=== PATIENT | male | born 1960 | race Caucasian/White ===

== ENCOUNTER → 2019-12-13 13:21 | Outpatient (BNVA) | payer OTHER, SELFPAY | PROVIDERS: Family Provider Internal Medicine; PCP Internal Medicine; Visit Provider Internal Medicine | DX: E78.2 Mixed hyperlipidemia (principal) | CPT/HCPCS: 80061 ==

== ENCOUNTER 2020-01-28 13:13 | Outpatient (CLI) | payer OTHER, SELFPAY ==
--- NOTE | 2020-01-28 13:30 | USCV_ITS ---
Montrell Garcia Age: 59 Gender: M : 1960 Exam Date: 01/28/2020 13:34 Ordering Phys: Matthew Mcclelland MD ([email or web address]) Technologist: Maddi Valdez Exam Location: [facility] [place] Indication: AV replaced/ hx Ross procedure BP: / HR: 57 Rhythm: Sinus Technical Quality: Good MEASUREMENTS (Male / Female) Normal Values 2D ECHO LV Diastolic Diameter PLAX 5.8 cm 4.2 - 5.9 / 3.9 - 5.3 cm LV Systolic Diameter PLAX 4.4 cm IVS Diastolic Thickness 1.5 cm 0.6 - 1.0 / 0.6 - 0.9 cm IVS Systolic Thickness 1.7 cm LVPW Diastolic Thickness 1.1 cm 0.6 - 1.0 / 0.6 - 0.9 cm LVPW Systolic Thickness 1.2 cm LVOT Diameter 2.3 cm LV Ejection Fraction 2D Teich 46.7 % LV Ejection Fraction MOD 2C 54.5 % LV Ejection Fraction 2C AL 54.1 % LA Diameter 3.4 cm LA Width 4.7 cm LA Height 5.1 cm RA Width 4.7 cm RA Height 5.5 cm Aorta at Sinotubular Diameter 4.0 cm M-MODE LV Diastolic Diameter MM 6.5 cm 4.2 - 5.9 / 3.9 - 5.3 cm LV Systolic Diameter MM 4.1 cm LV Ejection Fraction MM Teich 66.4 % IVS Diastolic Thickness MM 0.7 cm 0.6 - 1.0 / 0.6 - 0.9 cm IVS Systolic Thickness MM 1.5 cm LVPW Diastolic Thickness MM 0.8 cm 0.6 - 1.0 / 0.6 - 0.9 cm LVPW Systolic Thickness MM 1.4 cm Aortic Annulus Diameter 3.2 cm LA Ao Ratio MM 1.2 MV E Point Septal Separation 0.4 cm DOPPLER AV Peak Velocity 137.3 cm/s LVOT Peak Velocity 93.0 cm/s AV Area Cont Eq vti 3.1 cm squared AV Area Cont Eq pk 2.7 cm squared MV Peak Velocity 104.0 cm/s MV Area PHT 3.5 cm squared Mitral E to A Ratio 1.7 MV E' Velocity 54.5 cm/s Mitral E to MV E' Ratio 9.0 Mitral E to LV E' Lateral Ratio 7.5 Mitral E to LV E' Septal Ratio 11.3 TR Peak Velocity 139.7 cm/s TR Peak Gradient 7.8 mmHg Right Atrial Pressure 3.0 mmHg Pulmonary Artery Systolic Pressu 10.8 mmHg PV Peak Velocity 145.0 cm/s RV Acceleration Time 0.1 s RV Ejection Time 0.3 s RV AcT/ET 0.3 FINDINGS Left Ventricle Normal LV size with an ejection fraction of 54%. Mild hypokinesia of the basal and mid septum and anteroseptal segments. Right Ventricle Normal right ventricular size and systolic function. Right Atrium Mildly dilated Left Atrium Mildly dilated Mitral Valve No gross abnormalities were noted Aortic Valve Tissue valve at the aortic position appears to be well-seated. Valve leaflets could not be visualized well. Mild aortic regurgitation was noted Tricuspid Valve Trace tricuspid valve regurgitation. Pulmonic Valve Could not be visualized well Pericardium No pericardial effusion. Aorta Normal aortic annulus size. CONCLUSIONS Normal LV size with an ejection fraction of 54%. Mild hypokinesia of the basal and mid septum and anteroseptal segments. Tissue valve at the aortic position appears to be well-seated. Valve leaflets could not be visualized well. Mild aortic regurgitation was noted. Peak velocity at the aortic valve was 1.37 m/s. Mild biatrial enlargement. Trace tricuspid valve regurgitation. Estimated pulmonary peak systolic pressure was within normal limits There is no pericardial effusion. There are no intracardiac masses. Compared to the previous study from 12/11/2018, there may not be a significant change. Dr Matthew Mcclelland MD FAC (Electronically Signed) Final Date: 28 January 2020 19:51 S
== END 2020-01-28 13:14 | disposition home or self-care (01) ==
PROVIDERS: PCP Internal Medicine; Visit Provider Internal Medicine Cardiovascular Disease
DX: I38 Endocarditis, valve unspecified (principal); Z95.2 Presence of prosthetic heart valve; I35.1 Nonrheumatic aortic (valve) insufficiency; I07.1 Rheumatic tricuspid insufficiency
CPT/HCPCS: 93306

== ENCOUNTER 2020-04-28 01:36 | Emergency (ER) | payer OTHER, SELFPAY ==
[2020-04-28 01:41] VITALS: BP 174/69; PULSE 58; RESP 18; TEMP 36.6; O2SAT 95; BMI 33.5
--- NOTE | 2020-04-28 01:54 | CTR_ITS ---
PROCEDURE INFORMATION: Exam: CT Head Without Contrast Exam date and time: 04/28/2020 1:56 AM Age: 59 years old Clinical indication: Numbness / parasthesia; Patient HX: Sudden onset of left arm numbness this a. M. TECHNIQUE: Imaging protocol: Computed tomography of the head without contrast. Radiation optimization: All CT scans at this facility use at least one of these dose optimization techniques: automated exposure control; mA and/or kV adjustment per patient size (includes targeted exams where dose is matched to clinical indication); or iterative reconstruction. COMPARISON: No relevant prior studies available. RADIATION DOSE METRICS: Total DLP (mGy-cm): 903.21 FINDINGS: Brain: No hemorrhage. No significant white matter disease. No edema. Cerebral ventricles: No hydrocephalus Bones/joints: No acute fracture. Paranasal sinuses: Visualized sinuses are unremarkable. No fluid levels. Mastoid air cells: No significant mastoid effusion. Soft tissues: Unremarkable. CT/CT head wo con* [id number] IMPRESSION: No acute intracranial abnormality. Radiation Dose CTDIVOL = (mGy): DLP = 903.21 (mGy-cm)
--- NOTE | 2020-04-28 01:54 | XR_ITS ---
WS: [id number] Exam: XR chest 1V portable [id number] Date/Time of Exam: 04/28/2020 1:56 AM Reason For Exam: cp Comparison 04/21/2015. The lungs are clear and fully expanded. Unremarkable cardiomediastinal structures for technique. Sign s of the median sternotomy. Regional bony elements are intact. XR/XR chest 1V portable [id number] IMPRESSION: 1. No acute cardiopulmonary finding. No change.
--- NOTE | 2020-04-28 01:54 | ECG_ITS ---
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 Measurements Intervals [place] Rate: 53 P: 26 IN: 206 QRS: 20 QRSD: 100 T: 38 QT: 452 QTc: 427 Interpretive Statements SINUS BRADYCARDIA No previous ECG available for comparison Electronically Signed On 04-29-2020 11:21:48 BOOK ILLUSTRATOR by Bre Neri M.D. [id number]
--- NOTE | 2020-04-28 02:00 | W.ED.NEUROSD ---
HPI - Neuro Symptoms/Deficit General: Chief Complaint: General Medical Stated Complaint: left arm numbness Time Seen by Provider: 04/28/20 01:38 Source: patient Mode of arrival: ambulatory Limitations: no limitations History of Present Illness: HPI Narrative: 59-year-old male states he went to bed last night at 10:00. He states he woke up at 1230 and had pain in his left elbow with numbness in his first 2 fingers and thumb. He states that the numbness is since improved but he still has some slight numbness in his fingers. He states he has had this happen before but he has not had it last this long. He denies any chest pain or headache. He states he got some slight pain still in his elbow and forearm as well. He denies any weakness. Associated symptoms: Deny chest pain, headache(s), nausea or vomiting Review of Systems Const: Denies: fever(s), chills, body aches or change in appetite Eyes: Denies: blurry vision or eye discomfort ENMT: Denies: throat pain or dental pain Card: Denies: chest pain Resp: Denies: dyspnea GI: Denies: abdominal pain, nausea, vomiting or diarrhea : Denies: dysuria Musc: Denies: neck pain or back pain Skin/Breast: Denies: rash Neuro: Reports: numbness in extremities; Denies: headache(s) Psych: Denies: depression Dante/Lymph: Denies: easy bruising All/Imm: Denies: urticaria PFSH ED PFSH: Medical History (Updated 04/28/20 @ 03:25 by Toy Travis MD) Abdominal aortic aneurysm ASHD (arteriosclerotic heart disease) BPH (benign prostatic hyperplasia) Hyperlipidemia Hypertension DIONICIO (obstructive sleep apnea) Valvular heart disease Surgical History H/O aortic valve replacement History of back surgery Family History Other CAD (coronary artery disease) CHF (congestive heart failure) Hypertension Social History Smoking and tobacco status: never smoked Alcohol intake: current Alcohol intake frequency: holidays/special occasions only Household members: spouse NIH stroke score NIHSS: Level Of Consciousness - 1a: 0 Level Of Consciousness Questions - 1b: Both Correct Level Of Consciousness Commands - 1c: Both Correct Best Gaze - 2: Normal Visual Márquez - 3: No Visual Loss Facial Palsy - 4: Normal Motor Arm Right - 5: No Drift Motor Arm Left - 5: No Drift Motor Leg Right - 6: No Drift Motor Leg Left - 6: No Drift Limb Ataxia - 7: Absent Sensory - 8: Normal Best Language - 9: No Aphasia Dysarthia - 10: Normal Extinction And Inattention - 11: 0 Score: Total Score: 0 Physical Exam Const: COMMON NORMALS: no acute distress, patient oriented x3 and healthy appearing HENMT: COMMON NORMALS: normocephalic and atraumatic HEAD & SCALP: normocephalic and atraumatic Eye: COMMON NORMALS: Equal, round and reactive pupils present and EOMs intact bilaterally PUPIL: Yes Equal, round and reactive pupils present Neck/C-Spine: COMMON NORMALS: full ROM and supple Chest: COMMONS NORMALS: normal inspection of the chest and normal palpation of entire chest wall Resp: COMMON NORMALS: normal respiratory effort, No retractions, No use of accessory muscles and clear to auscultation bilaterally AUSCULTATION: clear to auscultation bilaterally Cardio: COMMON NORMALS: regular rate, regular rhythm and No murmurs present (Cardio) RATE: regular rate RHYTHM: regular rhythm GI: COMMON NORMALS: Normal to inspection, nondistended, normoactive bowel sounds present, Soft to palpation, non-tender and no masses PALPATION: Yes Soft to palpation Extremity: COMMON NORMALS: normal to inspection and full ROM Neuro: COMMON NORMALS: patient oriented x3, moves all extremities and no focal motor deficits CRANIAL NERVES: Yes CN normal except as noted COORDINATION/BALANCE: kinqol-kf-[id number] test normal SPEECH: speech normal GAIT: Yes Normal gait present MOTOR EXAM: 5/5 motor strength present throughout COORDINATION: inugkm-ln-fdov test normal Psych: COMMON NORMALS: mental status grossly normal, Normal thought process present and cooperative THOUGHT PROCESS: Normal thought process present Skin: COMMON NORMALS: no rashes or lesions noted and no wounds GENERAL SKIN EXAM: no rashes or lesions noted Course Vital Signs: Vital signs: Vital Signs Temperature 97.9 F 04/28/20 01:41 Pulse Rate 52 L 04/28/20 03:45 Respiratory Rate 18 04/28/20 03:45 Blood Pressure 144/65 04/28/20 03:45 Pulse Oximetry 96 04/28/20 03:45 MDM - Neuro Symptoms/Deficit MDM Narrative: Medical decision making narrative: Montrell presents here with pain in his elbow along with numbness in his hand. I believe he likely has a tendinitis is causing his pain and the numbness. Patient's EKG and troponin here are normal and he has no signs of cardiac cause. CT is normal and he has no signs of a stroke. Patient is stable for discharge and is to follow-up his PCP and return if worsening. Lab Data: Labs: Lab Results 04/28/20 04/28/20 04/28/20 Range/Units 02:19 02:19 02:19 WBC 5.1 (4.0-10.0) 10^3/ uL RBC 4.56 (4.1-5.3) 10^6/u L Hgb 13.9 (11.7-16.6) g/dL Hct 42.0 (42.0-52.0) % MCV 92.1 (80-94) fL MCH 30.5 (28.0-34.0) pg MCHC 33.1 (30.0-36.0) g/dL RDW 13.6 (12.1-15.1) % Plt Count 148 (130-400) 10^3/c mm MPV 11.0 H (7.4-10.4) fL Neut % (Auto) 59.4 % Lymph % (Auto) 25.3 % Sampson % (Auto) 10.1 % Eos % (Auto) 4.0 % Baso % (Auto) 1.0 % Neut # (Auto) 3.01 (1.8-7.7) 10^3/u L Lymph # (Auto) 1.3 (0.8-4.8) 10^3/u L Sampson # (Auto) 0.5 (0.2-0.9) 10^3/u L Eos # (Auto) 0.2 (0.0-0.8) 10^3/u L Baso # (Auto) 0.1 (0.0-0.1) 10^3/u L Nucleated RBC % (a uto) 0 % Nucleated RBCs # 0.0 /100WBC Sodium Cancelled Potassium Cancelled Chloride Cancelled Carbon Dioxide Cancelled Anion Gap Cancelled BUN Cancelled Creatinine Cancelled GFR Calculation Cancelled Glucose Cancelled Calculated Osmolal ity Cancelled Calcium Cancelled Total Bilirubin Cancelled AST Cancelled ALT Cancelled Alkaline Phosphata se Cancelled Troponin T Baselin e Cancelled Total Protein Cancelled Albumin Cancelled Globulin Cancelled 04/28/20 04/28/20 Range/Units 02:50 02:50 WBC (4.0-10.0) 10^3/ uL RBC (4.1-5.3) 10^6/u L Hgb (11.7-16.6) g/dL Hct (42.0-52.0) % MCV (80-94) fL MCH (28.0-34.0) pg MCHC (30.0-36.0) g/dL RDW (12.1-15.1) % Plt Count (130-400) 10^3/c mm MPV (7.4-10.4) fL Neut % (Auto) % Lymph % (Auto) % Sampson % (Auto) % Eos % (Auto) % Baso % (Auto) % Neut # (Auto) (1.8-7.7) 10^3/u L Lymph # (Auto) (0.8-4.8) 10^3/u L Sampson # (Auto) (0.2-0.9) 10^3/u L Eos # (Auto) (0.0-0.8) 10^3/u L Baso # (Auto) (0.0-0.1) 10^3/u L Nucleated RBC % (a uto) % Nucleated RBCs # /100WBC Sodium 141 Potassium 3.7 Chloride 104 Carbon Dioxide 29 Anion Gap 11.7 BUN 17 Creatinine 1.0 GFR Calculation 76.2 L Glucose 112 Calculated Osmolal ity 294 Calcium 9.1 Total Bilirubin 0.4 AST 20 ALT 10 Alkaline Phosphata se 54 Troponin T Baselin e 10 Total Protein 5.7 L Albumin 4.1 Globulin 1.6 Imaging Data^: CXR: Attestation: I personally reviewed and interpreted this imaging study as follows: My impression: no acute abnormality EKG Data^: EKG 1: Attestation: I personally reviewed and interpreted this EKG as follows: EKG interpretation date: 04/28/20 EKG interpretation time: 02:25 Interpretation: sinus fabian hr [address] or t wave abnormalities qrs 100 qtc 436 Discharge Plan Discharge Patient Disposition: Home Clinical Impression: Paresthesia, Elbow pain, left Condition: Stable Prescriptions: New Naprosyn 500 mg tablet 500 mg PO BID PRN (Reason: pain) Qty: 20 RF: 0 No Action fluticasone propionate [Flonase Allergy Relief] 50 mcg/actuation spray,suspension 2 spray INTRANASAL DAILY RF: 0 aspirin [Adult Aspirin Regimen] 81 mg tablet,delayed release (DR/EC) 162 mg PO DAILY RF: 0 omega-3 acid ethyl esters [Lovaza] 1 gram capsule 1 cap PO DAILY Qty: 90 RF: 3 sildenafil (pulm.hypertension) 20 mg tablet 20 mg PO .COMPLEX Qty: 30 RF: 3 testosterone cypionate [Depo-Testosterone] 200 mg/mL oil 200 mg IM .d2cbjeg 30 Days Qty: 10 RF: 3 lorazepam 0.5 mg tablet 0.5 mg PO BID PRN (Reason: anxiety) Qty: 60 RF: 0 lisinopril 20 mg tablet 20 mg PO DAILY 90 Days Qty: 90 RF: 0 rosuvastatin 20 mg tablet 20 mg PO DAILY Qty: 90 RF: 3 Discharge Orders: Discharge ED (Routine); Ordered 04/28/20 Ordered By: Toy Travis Referrals: Balbir Lewis MD [Primary Care Provider] - 1-3 days Discharge Diet: Advance as tolerated Discharge Activity: Resume usual activity Patient Instructions: Paresthesia (ED), Tendinitis (ED) Coding Level of Care Code ED Senior Production Manager for Irinag Fwd Exam Comprehensive
[2020-04-28 02:21] VITALS: BP 139/56; PULSE 55; RESP 16; O2SAT 95
[2020-04-28 02:26] LABS: Basophils # 0.1 10^3/uL (0.0-0.1); Eosinophils # 0.2 10^3/uL (0.0-0.8); Hemoglobin 13.9 g/dL (11.7-16.6); Lymphocytes # 1.3 10^3/uL (0.8-4.8); Lymphocytes % 25.3 %; Mean Corpuscular HGB Conc 33.1 g/dL (30.0-36.0); Mean Corpuscular Hemoglobin 30.5 pg (28.0-34.0); Mean Corpuscular Volume 92.1 fL (80-94); Monocytes # 0.5 10^3/uL (0.2-0.9); Monocytes % 10.1 %; Neutrophils # 3.01 10^3/uL (1.8-7.7); Neutrophils % 59.4 %; Nucleated Red Blood Cells % 0 %; Platelet Count 148 10^3/cmm (130-400); Red Blood Count 4.56 10^6/uL (4.1-5.3); Red Cell Distribution Width 13.6 % (12.1-15.1); White Blood Count 5.1 10^3/uL (4.0-10.0)
[2020-04-28 03:22] LABS: Alanine Aminotransferase 10 U/L (0-41); Albumin Level 4.1 g/dL (3.5-5.2); Alkaline Phosphatase 54 IU/L (40-130); Anion Gap 11.7 (5-19); Aspartate Amino Transferase 20 U/L (0-40); Blood Urea Nitrogen 17 mg/dL (8-23); Calcium 9.1 mg/dL (8.5-10.5); Carbon Dioxide 29 mmol/L (22-29); Chloride 104 mmol/L (98-107); Globulin 1.6 g/dL (1.3-4.6); Glomerular Filtration Rate 76.2 mL/min (90-130); Glucose 112 mg/dL (65-115); Osmolality Calculated 294 mOsm/kg (285-295); Potassium 3.7 mmol/L (3.5-5.1); Sodium 141 mmol/L (136-145); Total Bilirubin 0.4 mg/dL (0.15-1.2); Total Protein 5.7 g/dL (6.6-8.7)
[2020-04-28 03:23] LABS: Troponin(5th) Baseline 10 ng/L (0-15)
[2020-04-28 03:45] VITALS: BP 144/65; PULSE 52; RESP 18; O2SAT 96
== END 2020-04-28 03:47 | disposition home or self-care (01) ==
PROVIDERS: Emergency Provider Emergency Medicine; PCP Internal Medicine
DX: R20.2 Paresthesia of skin (principal); M25.522 Pain in left elbow; Z79.82 Long term (current) use of aspirin; E78.5 Hyperlipidemia, unspecified; I10 Essential (primary) hypertension
CPT/HCPCS: 70450; 71045; 80053; 84484; 85025; 93005; 99283

== ENCOUNTER → 2020-09-18 13:32 | Outpatient (BNVA) | payer OTHER, SELFPAY | PROVIDERS: PCP Internal Medicine; Visit Provider Internal Medicine | DX: Z01.812 Encounter for preprocedural laboratory examination (principal); Z20.822 Contact with and (suspected) exposure to COVID-19 | CPT/HCPCS: 87635 ==

== ENCOUNTER 2020-09-22 07:54 | Day surgery (SDC) | payer OTHER, SELFPAY ==
[2020-09-20 11:48] VITALS: BMI 33.5
[2020-09-22 08:03] VITALS: BP 162/69; PULSE 67; RESP 18; TEMP 36.3; O2SAT 96
[2020-09-22] MEDS: sodium chloride 0.9% 1,000 ML 30 ML IV (08:15)
--- NOTE | 2020-09-22 08:40 | ANES.PREANE2 ---
Pre-Anesthetic Assessment Pre-Anesthetic Assessment: Height/Weight: Height 1.8 m Weight 108.862 kg Temp Pulse Resp BP Pulse Ox 97.3 F L 67 18 162/69 96 09/22/20 08:03 09/22/20 08:03 09/22/20 08:03 09/22/20 08:03 09/22/20 08:03 Preop Diagnosis: screen Proposed Procedure: Operation Date: 09/22/20 09:00 Proposed Procedures p Colonoscopy 38689 z12.11(Not Applicable) - Balbir Lewis MD Familial anesthetic complications: PONV w/ general anesthetics Was Beta Zuri taken within 24 hours: N/A Was Clonidine taken within 24 hours: N/A Last intake: Intake Last Liquid Date 09/21/20 Last Liquid Time 23:00 Last Solid Date 09/20/20 Last Solid Time 19:00 Social: Social History: No alcohol and No tobacco Exam: Pre-Anes Outpt Exam: alert, oriented x 3, clear to auscultation bilaterally and regular rate & rhythm Additional Exam Findings (including area of procedure): murmur - normal for patient Airway: Cervical ROM: WNL MP: 4 Dentition: Other (veneers) Pulmonary: Pulmonary: Sleep apnea CV/HEM: CV/HEM: CAD and HTN Comments: Aortic valve replacement X 2 w/ aortic root replacement; doing well since surgery AAA ECHO 12/2018 Normal left ventricular size and systolic function, EF 67 %. Abnormal (paradoxical) septal motion consistent with postoperative status. The tissue valve with aortic position appears to be well-seated. Trace to mild aortic valve regurgitation. Peak velocity aortic valve is 1.7 m/s with a peak gradient of 12 mean gradient of 5 mmHg Mild left ventricular hypertrophy. Trace tricuspid valve regurgitation. Normal pulmonary artery peak systolic pressure of 28 mmHg There is no pericardial effusion. There are no intracardiac masses. Compared to the study from 05/30/2017, there may not be a significant change Anesthetic Plan: ASA status: 3 Anesthesia: MAC Risk of > 500 ml blood loss (7ml/kg in children): No Meds/Allergies Current Medications: Current Medications Generic Name Dose Route Start Last Admin Trade Name Freq PRN Reason Stop Dose Admin Sodium Chloride 1,000 mls @ 30 ml s/hr 09/22/20 08:00 09/22/20 08:15 Sodium Chloride 0.9% IV 09/23/20 07:59 30 mls/hr .Q24H VISH Administration PFSH Anesthesia PFSH: Medical History (Updated 05/06/20 @ 00:00 by ) Abdominal aortic aneurysm ASHD (arteriosclerotic heart disease) BPH (benign prostatic hyperplasia) Hyperlipidemia Hypertension DIONICIO (obstructive sleep apnea) Valvular heart disease Surgical History H/O aortic valve replacement History of back surgery Family History Other CAD (coronary artery disease) CHF (congestive heart failure) Hypertension Social History Smoking and tobacco status: never smoked Alcohol intake: current Alcohol intake frequency: holidays/special occasions only Household members: spouse Data Anesthesia Cardiac Studies: No Data to Display
--- NOTE | 2020-09-22 09:10 | W.PM.OPSFHP ---
Same Day Surgery H&P Indication for Procedure/HPI DATE OF PROCEDURE: September 22, 2020 CHIEF COMPLAINT/INDICATIONFOR SURGICAL PROCEDURE: Screening PREOP DIAGNOSIS: screen PLANNED PROCEDRUE: Operation Date: 09/22/20 09:00 Proposed Procedures p Colonoscopy 74535 z12.11(Not Applicable) - Balbir Lewis MD Medications/Allergies* Home Medications Medication Instructions Recorded Confirmed Type aspirin 81 mg tablet,delayed 162 mg PO DAILY tab 11/18/19 09/20/20 History release fluticasone propionate 50 2 spray INTRANASAL DAILY 11/18/19 09/20/20 History mcg/actuation nasal spray,suspension Allergies/Adverse Reactions Allergy/AdvReac Type Severity Reaction Status Date / Time cephalexin [From Keflex] Allergy Unknown Verified 12/13/19 13:30 Current Medications: Generic Name Dose Route Start Last Admin Trade Name Freq PRN Reason Stop Dose Admin Sodium Chloride 1,000 mls @ 30 mls/hr 09/22/20 08:00 09/22/20 08:15 Sodium Chloride 0.9% IV 09/23/20 07:59 30 mls/hr .Q24H VISH Administration Pertinent History/Comorbid Conditions* Medical History (Updated 05/06/20 @ 00:00 by ) Abdominal aortic aneurysm ASHD (arteriosclerotic heart disease) BPH (benign prostatic hyperplasia) Hyperlipidemia Hypertension DIONICIO (obstructive sleep apnea) Valvular heart disease Surgical History (Updated 11/18/19 @ 14:12 by Matthew Mcclelland MD) H/O aortic valve replacement History of back surgery Family History (Updated 11/18/19 @ 13:50 by Michelle Pantoja RN) CAD (coronary artery disease) CHF (congestive heart failure) Hypertension Social History Smoking and tobacco status: never smoked Alcohol intake: current Alcohol intake frequency: holidays/special occasions only Household members: spouse Pertinent Exam Findings alert, oriented x 3, clear to auscultation bilaterally, regular rate & rhythm, operative site marked and procedure specific exam findings Recommendations Surgery/Procedure today Coding Level of Care Code Acute Reel 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
[2020-09-22 10:35] VITALS: BP 116/55; PULSE 56; RESP 18; O2SAT 97
--- NOTE | 2020-09-22 14:20 | ANE.PACU2 ---
Inpatient post-anesthesia follow up: Airway intact: Yes Vital signs: Temperature 97.3 F Pulse Rate 56 Respiratory Rate 18 Blood Pressure 116/55 Pulse Oximetry 97 Oxygen Delivery Me thod Room Air Oxygen Flow Rate Fraction of Inspir ed Oxygen Hydration adequate: Yes Nausea and vomiting: No Pain level: 2 Mental status: Baseline
== END 2020-09-22 10:45 | disposition home or self-care (01) ==
PROVIDERS: PCP Internal Medicine; Visit Provider Internal Medicine
PROC: 0DJD8ZZ Inspection of Lower Intestinal Tract, Via Natural or Artificial Opening Endoscopic (ICD-10-PCS; CPT 45378; principal; 2020-09-22 09:00)
DX: Z12.11 Encounter for screening for malignant neoplasm of colon (principal); K57.30 Diverticulosis of large intestine without perforation or abscess without bleeding; D12.3 Benign neoplasm of transverse colon; N40.0 Benign prostatic hyperplasia without lower urinary tract symptoms; E78.5 Hyperlipidemia, unspecified; I10 Essential (primary) hypertension; G47.33 Obstructive sleep apnea (adult) (pediatric); Z82.49 Family history of ischemic heart disease and other diseases of the circulatory system
CPT/HCPCS: 45385; 96360; 96361; J2704; J7030

== ENCOUNTER → 2020-12-11 09:24 | Outpatient (BNVA) | payer OTHER, SELFPAY | PROVIDERS: PCP Internal Medicine; Visit Provider Nurse Practitioner Family | DX: I38 Endocarditis, valve unspecified (principal); E78.2 Mixed hyperlipidemia; I10 Essential (primary) hypertension; I25.10 Atherosclerotic heart disease of native coronary artery without angina pectoris; Z12.5 Encounter for screening for malignant neoplasm of prostate | CPT/HCPCS: 80053; 80061; 83036; 84153 ==

== ENCOUNTER 2021-07-20 13:41 | Emergency (ER) | payer OTHER, SELFPAY ==
[2021-07-20 13:52] VITALS: BP 140/56; PULSE 64; RESP 16; TEMP 36.6; O2SAT 96; BMI 34.8
--- NOTE | 2021-07-20 14:05 | XRR_ITS ---
PROCEDURE INFORMATION: Exam: XR Chest Exam date and time: 07/20/2021 2:14 PM Age: 61 years old Clinical indication: Pain; Angina pectoris; Prior surgery; Additional info: Cp TECHNIQUE: Imaging protocol: XR of the chest. Views: 1 view. COMPARISON: CR XR chest 1V portable [id number] 04/28/2020 1:59 AM FINDINGS: Lungs: Unremarkable. No consolidation. Pleural spaces: Unremarkable. No pleural effusion. No pneumothorax. Heart/Mediastinum: Cardiomegaly is identified. Bones/joints: There has been a sternotomy. XR/XR chest 1V portable [id number] IMPRESSION: There are no acute concerning abnormalities.
[2021-07-20 14:34] LABS: Basophils % 0.6 %; Eosinophils # 0.2 10^3/uL (0.0-0.8); Eosinophils % 2.4 %; Hemoglobin 13.7 g/dL (11.7-16.6); Lymphocytes # 1.2 10^3/uL (0.8-4.8); Lymphocytes % 18.5 %; Mean Corpuscular HGB Conc 35.1 g/dL (30.0-36.0); Mean Corpuscular Hemoglobin 30.6 pg (28.0-34.0); Mean Corpuscular Volume 87.1 fl (80-94); Mean Platelet Volume 10.7 fL (7.4-10.4); Monocytes # 0.5 10^3/uL (0.2-0.9); Monocytes % 8.3 %; Neutrophils # 4.38 10^3/uL (1.8-7.7); Neutrophils % 69.7 %; Nucleated Red Blood Cells % 0 %; Platelet Count 130 10^3/cmm (130-400); Red Blood Count 4.48 10^6/uL (4.1-5.3); Red Cell Distribution Width 12.6 % (12.1-15.1); White Blood Count 6.3 10^3/uL (4.0-10.0)
[2021-07-20 14:53] LABS: Troponin T (5th) Once 15 ng/L (0-15)
[2021-07-20 15:02] LABS: Alanine Aminotransferase 13 U/L (0-41); Albumin Level 4.5 g/dL (3.5-5.2); Alkaline Phosphatase 36 IU/L (40-130); Aspartate Amino Transferase 19 U/L (0-40); Blood Urea Nitrogen 16 mg/dL (8-23); Calcium 8.5 mg/dL (8.5-10.5); Carbon Dioxide 27 mmol/L (22-29); Chloride 103 mmol/L (98-107); Globulin 1.1 g/dL (1.3-4.6); Glomerular Filtration Rate 75.7 mL/min (90-130); Glucose 99 mg/dL (65-115); Magnesium 1.7 mg/dL (1.7-2.3); Osmolality Calculated 289 mOsm/kg (285-295); Sodium 139 mmol/L (136-145); Thyroid Stimulating Hormone 3.49 uIU/mL (0.27-4.20); Total Bilirubin 0.7 mg/dL (0.15-1.2); Total Protein 5.6 g/dL (6.6-8.7)
[2021-07-20 15:03] LABS: Anion Gap 13.1 (5-19); Potassium 4.1 mmol/L (3.5-5.1)
--- NOTE | 2021-07-20 16:31 | ECG_ITS ---
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 Measurements Intervals [place] Rate: 56 P: 18 VA: 195 QRS: 13 QRSD: 96 T: 24 QT: 417 QTc: 403 Interpretive Statements SINUS BRADYCARDIA WITH SINUS ARRHYTHMIA NONSPECIFIC ST & T-WAVE ABNORMALITY Compared to ECG 04/28/2020 02:25:01 T-wave abnormality now present Electronically Signed On 07-21-2021 10:21:12 CDT by Bre Neri M.D. [id number]
[2021-07-20 16:35] VITALS: BP 144/52; PULSE 61; RESP 14; O2SAT 96
--- NOTE | 2021-07-20 16:44 | ED_ITS ---
Documented by User: Huma Patel 07/20/21 16:47 HPI - Arrhythmia/Palpitations General: Chief Complaint: Arrhythmia/Palpitations Stated Complaint: heart issues Time Seen by Provider: 07/20/21 14:00 History of Present Illness: 61-year-old male patient presents to the emergency department complaining of palpitations in his chest that started this a.m. when he woke up. Patient denies any chest pain or shortness of breath. Patient denies any back pain. Patient states he does have history of A. fib but has not had issues in years patient is not on any blood thinners. Patient denies any abdominal pain or fever. Patient denies any recent start of new medications. Patient states he has started exercising again other than that there have been no new changes with him. Associated symptoms: Deny anxiety, diaphoresis, nausea, pre-syncope, syncope or vomiting Review of Systems Const: Denies: fever(s), chills, body aches, change in appetite, change in weight, fatigue, malaise or diaphoresis Eyes: Denies: change in vision, blurry vision, blind spots, photophobia, eye discomfort, eye discharge, eye redness, floaters or seeing flashes ENMT: Denies: throat pain, uvular edema, enlarged tonsils, odynophagia, hoarseness, mouth pain, swelling of lips/tongue, oral sores, bleeding gums, dental pain, dry mouth, ear or mastoid pain, ear discharge, change in hearing, tinnitus, disequilibrium, nasal discharge, nasal congestion, post nasal drip or sinus pain Card: Denies: chest pain, irregular heart rhythm, edema, swelling of feet/ankles, lightheadedness, syncope, pre-syncope, dyspnea on exertion, orthopnea, leg pain with exertion or acrocyanosis Resp: Denies: dyspnea, productive cough, non-productive cough, wheezing, st ridor, pain on inspiration, change in phlegm color, hemoptysis or chest congestion GI: Denies: abdominal pain, nausea, vomiting, hematemesis, dysphagia, diarrhea, constipation, GI cramping, change in bowel habits or rectal pain : Denies: flank pain, dysuria, urinary frequency, urinary urgency, urinary hesitancy or hematuria Musc: Denies: neck pain, back pain, extremity pain, extremity swelling, joint pain, joint swelling, joint redness, joint warmth or deformity Skin/Breast: Denies: rash, pruritus, erythema, sores, new lesions, changes in skin color or dry skin Neuro: Denies: headache(s), numbness in extremities, weakness in extremities, sensory changes, lack of coordination, difficulty walking, frequent falls, dizziness, vertigo, confusion, behavioral changes, Slurred speech present, difficulty communicating thoughts or seizure-like activity Psych: Denies: anxiety, depression, suicidal ideation or homicidal ideation Endo: Denies: polyuria, polydipsia, tired all the time, cold intolerance, excessive sweating, flushing, hot flashes or heat intolerance Dante/Lymph: Denies: easy bruising, easy bleeding, petechiae, purpura, enlarged lymph nodes or tender lymph nodes All/Imm: Denies: urticaria, throat swelling, tongue swelling, facial swelling, acute wheezing or itchy eyes PFSH ED PFSH: Medical History Abdominal aortic aneurysm ASHD (arteriosclerotic heart disease) BPH (benign prostatic hyperplasia) Hyperlipidemia Hypertension DIONICIO (obstructive sleep apnea) Valvular heart disease Surgical History H/O aortic valve replacement History of back surgery Family History Other CAD (coronary artery disease) CHF (congestive heart failure) Hypertension Social History Smoking and tobacco status: never smoked Alcohol intake: current Alcohol intake frequency: holidays/special occasions only Household members: spouse Physical Exam Const: COMMON NORMALS: no acute distress, patient oriented x3, healthy appearing, alert and well nourished GENERAL APPEARANCE: cooperative, comfortable, well kempt and well developed; not ill appearing ORIENTATION/CONSCIOUSNESS: Yes awake, Yes oriented to person, Yes oriented to place and Yes oriented to time HENMT: COMMON NORMALS: normocephalic, atraumatic, hearing grossly normal bilaterally, external ears normal, EAC's normal, TM's normal bilaterally, Normal external nose present, Normal nasal mucous membranes and turbinates present and moist oral mucous membranes HEAD & SCALP: normal to inspection, normocephalic and atraumatic FACE & SINUS: normal facial exam, sinuses nontender and face symmetric NOSE: Normal external nose present, Normal nares present, Normal nasal mucous membranes and turbinates present, No nasal discharge present and Abnormal external nose present EXTERNAL EAR: Yes external ears normal and Yes mastoids normal EXTERNAL AUDITORY CANAL: EAC's normal TYMPANIC MEMBRANE: TM's normal bilaterally MOUTH: Normal oral and palatal mucosa present, lip normal, tongue normal and Normal salivary glands and ducts present THROAT: no uvular edema Eye: COMMON NORMALS: Equal, round and reactive pupils present, EOMs intact bilaterally, conjunctivae normal, no scleral icterus and no papilledema GENERAL EYE: appearance normal, both eyes and all related structures EYELID: eyelids normal CONJUNCTIVA: Yes conjunctivae normal SCLERA: sclerae normal CORNEA: Yes corneas normal PUPIL: Yes Equal, round and reactive pupils present DIRECT OPHTHALMOSCOPY: Yes no papilledema Neck/C-Spine: COMMON NORMALS: full ROM, no lymphadenopathy, supple, no meningeal signs, no JVD and Thyroid normal GENERAL: Yes normal visual inspection and Yes trachea midline THYROID: Thyroid normal CERVICAL SPINE: Yes cervical ROM normal Lymph: LYMPHATIC: no lymphadenopathy noted and no lymphedema noted Chest: COMMONS NORMALS: normal inspection of the chest and normal palpation of entire chest wall Resp: COMMON NORMALS: normal respiratory effort, No retractions, No use of a ccessory muscles and clear to auscultation bilaterally EFFORT & INSPECTION: Yes able to speak in complete sentences and Yes symmetric chest movement AUSCULTATION: clear to auscultation bilaterally Cardio: COMMON NORMALS: no JVD, regular rate and regular rhythm RATE: regular rate RHYTHM: regular rhythm GI: COMMON NORMALS: Normal to inspection, nondistended, normoactive bowel sounds present, Soft to palpation, non-tender, No hepatosplenomegaly present, no masses and no bruits INSPECTION: Yes normal to inspection AUSCULTATION: Yes normoactive bowel sounds PALPATION: Yes Soft to palpation and Yes No hepatosplenomegaly present PERCUSSION: normal to percussion RECTAL EXAM: Yes deferred : COMMON NORMALS: Yes no CVA tenderness BLADDER/KIDNEY EXAM: Yes no CVA tenderness Back/Pelvis: COMMON NORMALS: no CVA tenderness, thoracic and lumbar spine normal to inspection, no thoracic nor lumbar tenderness, thoraco-lumbar ROM normal and straight leg raise negative bilaterally THORACIC SPINE/UPPER BACK: Yes normal to inspection LUMBAR SPINE/LOWER BACK: Yes normal to inspection Extremity: COMMON NORMALS: normal to inspection, full ROM and capillary refill normal GENERAL: Yes normal exam except as noted Neuro: COMMON NORMALS: patient oriented x3, CN's II-XII intact bilaterally, moves all extremities, no focal motor deficits, no sensory deficits noted, deep tendon reflexes 2+ bilaterally and gait normal SENSORIUM/ORIENTATION: Yes alert, Yes oriented to person, Yes oriented to place and Yes oriented to time MENINGEAL SIGNS: Yes no meningeal signs CRANIAL NERVES: Yes CN normal except as noted SPEECH: speech normal GAIT: Yes Normal gait present SENSORY EXAM: Yes extremities MOTOR EXAM: 5/5 motor strength present throughout Psych: COMMON NORMALS: mental status grossly normal, Normal thought process present, cooperative, normal affect, speech normal, activity/motor behavior normal, denies hallucinations, denies homicidal ideation and denies suicidal ideation APPEARANCE: Yes grossly normal and Yes well kempt ATTITUDE: Yes calm ACTIVITY/MOTOR BEHAVIOR: Yes appropriate eye contact SPEECH: Yes normal speech THOUGHT PROCESS: Normal thought process present THOUGHT CONTENT: Yes Normal thought content present ATTENTION/CONCENTRATION: Yes attention grossly intact MEMORY/COGNITION: Yes memory grossly intact INSIGHT: Good insight present (Psych) JUDGEMENT: Good judgement present (Psych) Skin: COMMON NORMALS: no rashes or lesions noted, no wounds, turgor normal, no jaundice, no petechiae and no mottling GENERAL SKIN EXAM: no rashes or lesions noted and turgor normal Course Vital Signs: Vital signs: Vital Signs Temperature 97.8 F 07/20/21 13:52 Pulse Rate 60 07/20/21 17:35 Respiratory Rate 14 07/20/21 17:35 Blood Pressure 131/75 07/20/21 17:35 Pulse Oximetry 97 07/20/21 17:35 MDM - Arrhythmia/Palpitations Medical Decision Making Patient is well-appearing nontoxic and in no acute distress. Patient's labs reveal no concerning findings at this time. I am waiting delta troponin at this time. Patient is noted to be in normal sinus rhythm on the monitor has complained of palpitations patient has no other symptoms when he has these episodes of palpitations and review of the patient day coordinator it does appear patient had a PVC on occasion will wait for repeat delta troponin likely plan will be to discharge patient with follow-up to cardiology for a Holter monitor. Lab Data : 07/20/21 14:24 07/20/21 14:24 Radiology Impressions Chest X-Ray 07/20/21 14:05 IMPRESSION: There are no acute concerning abnormalities. Laboratory Results WBC 6.3 10^3/uL (4.0-10.0) 07/20/21 14:24 RBC 4.48 10^6/uL (4.1-5.3) 07/20/21 14:24 Hgb 13.7 g/dL (11.7-16.6) 07/20/21 14:24 Hct 39.0 % (42.0-52.0) L 07/20/21 14:24 MCV 87.1 fl (80-94) 07/20/21 14:24 MCH 30.6 pg (28.0-34.0) 07/20/21 14:24 MCHC 35.1 g/dL (30.0-36.0) 07/20/21 14:24 RDW 12.6 % (12.1-15.1) 07/20/21 14:24 Plt Count 130 10^3/cmm (130-400) 07/20/21 14:24 MPV 10.7 fL (7.4-10.4) H 07/20/21 14:24 Neut % (Auto) 69.7 % 07/20/21 14:24 Lymph % (Auto) 18.5 % 07/20/21 14:24 [place] % (Auto) 8.3 % 07/20/21 14:24 Eos % (Auto) 2.4 % 07/20/21 14:24 Baso % (Auto) 0.6 % 07/20/21 14:24 Neut # (Auto) 4.38 10^3/uL (1.8-7.7) 07/20/21 14:24 Lymph # (Auto) 1.2 10^3/uL (0.8-4.8) 07/20/21 14:24 [place] # (Auto) 0.5 10^3/uL (0.2-0.9) 07/20/21 14:24 Eos # (Auto) 0.2 10^3/uL (0.0-0.8) 07/20/21 14:24 Baso # (Auto) 0.0 10^3/uL (0.0-0.1) 07/20/21 14:24 Nucleated RBC % (auto) 0 % 07/20/21 14:24 Nucleated RBCs # 0.0 /100WBC 07/20/21 14:24 Sodium 139 mmol/L (136-145) 07/20/21 14:24 Potassium 4.1 mmol/L (3.5-5.1) 07/20/21 14:24 Chloride 103 mmol/L (98-107) 07/20/21 14:24 Carbon Dioxide 27 mmol/L (22-29) 07/20/21 14:24 Anion Gap 13.1 (5-19) 07/20/21 14:24 BUN 16 mg/dL (8-23) 07/20/21 14:24 Creatinine 1.0 mg/dL (0.7-1.2) 07/20/21 14:24 GFR Calculation 75.7 mL/min (90-130) L 07/20/21 14:24 Glucose 99 mg/dL (65-115) 07/20/21 14:24 Calculated Osmolality 289 mOsm/kg (285-295) 07/20/21 14:24 Calcium 8.5 mg/dL (8.5-10.5) 07/20/21 14:24 Magnesium 1.7 mg/dL (1.7-2.3) 07/20/21 14:24 Total Bilirubin 0.7 mg/dL (0.15-1.2) 07/20/21 14:24 AST 19 U/L (0-40) 07/20/21 14:24 ALT 13 U/L (0-41) 07/20/21 14:24 Alkaline Phosphatase 36 IU/L (40-130) L 07/20/21 14:24 Troponin T Gen 5 ng/L 15 ng/L (0-15) 07/20/21 16:29 Total Protein 5.6 g/dL (6.6-8.7) L 07/20/21 14:24 Albumin 4.5 g/dL (3.5-5.2) 07/20/21 14:24 Globulin 1.1 g/dL (1.3-4.6) L 07/20/21 14:24 TSH 3.49 uIU/mL (0.27-4.20) 05/20/22 14:24 Discharge Plan Discharge Patient Disposition: Home Clinical Impression: Palpitations Condition: Stable Prescriptions: No Action fluticasone propionate [Flonase Allergy Relief] 50 mcg/actuation spray,suspension 2 spray INTRANASAL DAILY 0RF Rx Instructions: administer into each nostril aspirin [Adult Aspirin Regimen] 81 mg tablet,delayed release (DR/EC) 162 mg PO DAILY 0RF lisinopril 20 mg tablet 20 mg PO DAILY 90 Days Qty: 90 4RF omega-3 acid ethyl esters [Lovaza] 1 gram capsule 1 cap PO DAILY Qty: 90 3RF rosuvastatin 20 mg tablet 20 mg PO DAILY Qty: 90 3RF sildenafil (pulm.hypertension) 20 mg tablet 20 mg PO .COMPLEX Qty: 30 3RF Rx Instructions: 20 mg PO as ordered one 30 mins previous; administer doses at least 4-6 hours apart lorazepam 0.5 mg tablet 0.5 mg PO BID PRN (Reason: anxiety) Qty: 60 0RF testosterone cypionate [Depo-Testosterone] 200 mg/mL oil 200 mg IM .[id number] 30 Days Qty: 10 0RF Rx Instructions: inject one ML every 2 weeks Zyrtec 10 mg Tablet 10 mg PO DAILY PRN (Reason: Allergy Symptoms) 0RF Discharge Orders: Discharge ED (Routine); Ordered 07/20/21 Ordered By: Bryce Bowser Referrals: Balbir Lewis MD [Primary Care Provider] - Discharge Diet: Regular Discharge Activity: Increase activity as tolerated Patient Instructions: Heart Palpitations (ED) Activity Restrictions/Additional Instructions: Follow-up with your PCP or hair designer as directed in the next 3 to 5 days for reevaluation and to get set up with a Holter monitor. Continue taking all home medications as previously prescribed. Return to the ER or your medical provider if condition worsens. Please read and understand discharge instructions. Thank you for choosing [facility] for your healthcare needs today. Please realize this is an emergency room and that we are providing you with a medical screening exam and this may not be complete and all inclusive of all the testing and or work up that you may need to determine your ailment or severity of your illness. It is very important that you follow up as instructed or that you return to the Emergency Department should you have concerns or if your condition changes or worsens in any way. Sign Out Sign Out Data: Patient Sign Out occurred on 07/20/21 at 17:21. Patient's care was discussed, and care was transferred from to AUGUSTA Marquez. Coding Level of Care Code ED Director Of Sustainable Design for [employer] Fwd Exam Comprehensive Documented by User: AUGUSTA Marquez 07/21/21 17:16 HPI - Arrhythmia/Palpitations General: Chief Complaint: Arrhythmia/Palpitations Stated Complaint: heart issues Time Seen by Provider: 07/20/21 14:[facility]: Medical History Abdominal aortic aneurysm ASHD (arteriosclerotic heart disease) BPH (benign prostatic hyperplasia) Hyperlipidemia Hypertension DIONICIO (obstructive sleep apnea) Valvular heart disease Surgical History H/O aortic valve replacement History of back surgery Family History Other CAD (coronary artery disease) CHF (congestive heart failure) Hypertension Social History Smoking and tobacco status: never smoked Alcohol intake: current Alcohol intake frequency: holidays/special occasions only Household members: spouse Course Vital Signs: Vital signs: Vital Signs Temperature 97.8 F 07/20/21 13:52 Pulse Rate 60 07/20/21 17:35 Respiratory Rate 14 07/20/21 17:35 Blood Pressure 131/75 07/20/21 17:35 Pulse Oximetry 97 07/20/21 17:35 MDM - Arrhythmia/Palpitations Medical Decision Making Patient is well-appearing nontoxic and in no acute distress. Patient's labs reveal no concerning findings at this time. I am waiting delta troponin at this time. Patient is noted to be in normal sinus rhythm on the monitor has complained of palpitations patient has no other symptoms when he has these episodes of palpitations and review of the patient day coordinator it does appear patient had a PVC on occasion will wait for repeat delta troponin likely plan will be to discharge patient with follow-up to cardiology for a Holter monitor. Patient's 1 and 2-hour troponins were negative. The rest of his labs are unremarkable. Cardiac monitoring showed occasional PVCs. Patient was stable for discharge home and told to follow-up with his hair designer for Holter monitor. Lab Data I reviewed the patient's lab results. : 07/20/21 14:24 07/20/21 14:24 Radiology Impressions Chest X-Ray 07/20/21 14:05 IMPRESSION: There are no acute concerning abnormalities. Laboratory Results WBC 6.3 10^3/uL (4.0-10.0) 07/20/21 14:24 RBC 4.48 10^6/uL (4.1-5.3) 07/20/21 14:24 Hgb 13.7 g/dL (11.7-16.6) 07/20/21 14:24 Hct 39.0 % (42.0-52.0) L 07/20/21 14:24 MCV 87.1 fl (80-94) 07/20/21 14:24 MCH 30.6 pg (28.0-34.0) 07/20/21 14:24 MCHC 35.1 g/dL (30.0-36.0) 07/20/21 14:24 RDW 12.6 % (12.1-15.1) 07/20/21 14:24 Plt Count 130 10^3/cmm (130-400) 07/20/21 14:24 MPV 10.7 fL (7.4-10.4) H 07/20/21 14:24 Neut % (Auto) 69.7 % 07/20/21 14:24 Lymph % (Auto) 18.5 % 07/20/21 14:24 [place] % (Auto) 8.3 % 07/20/21 14:24 Eos % (Auto) 2.4 % 07/20/21 14:24 Baso % (Auto) 0.6 % 07/20/21 14:24 Neut # (Auto) 4.38 10^3/uL (1.8-7.7) 07/20/21 14:24 Lymph # (Auto) 1.2 10^3/uL (0.8-4.8) 07/20/21 14:24 [place] # (Auto) 0.5 10^3/uL (0.2-0.9) 07/20/21 14:24 Eos # (Auto) 0.2 10^3/uL (0.0-0.8) 07/20/21 14:24 Baso # (Auto) 0.0 10^3/uL (0.0-0.1) 07/20/21 14:24 Nucleated RBC % (auto) 0 % 07/20/21 14:24 Nucleated RBCs # 0.0 /100WBC 07/20/21 14:24 Sodium 139 mmol/L (136-145) 07/20/21 14:24 Potassium 4.1 mmol/L (3.5-5.1) 07/20/21 14:24 Chloride 103 mmol/L (98-107) 07/20/21 14:24 Carbon Dioxide 27 mmol/L (22-29) 07/20/21 14:24 Anion Gap 13.1 (5-19) 07/20/21 14:24 BUN 16 mg/dL (8-23) 07/20/21 14:24 Creatinine 1.0 mg/dL (0.7-1.2) 07/20/21 14:24 GFR Calculation 75.7 mL/min (90-130) L 07/20/21 14:24 Glucose 99 mg/dL (65-115) 07/20/21 14:24 Calculated Osmolality 289 mOsm/kg (285-295) 07/20/21 14:24 Calcium 8.5 mg/dL (8.5-10.5) 07/20/21 14:24 Magnesium 1.7 mg/dL (1.7-2.3) 07/20/21 14:24 Total Bilirubin 0.7 mg/dL (0.15-1.2) 07/20/21 14:24 AST 19 U/L (0-40) 07/20/21 14:24 ALT 13 U/L (0-41) 07/20/21 14:24 Alkaline Phosphatase 36 IU/L (40-130) L 07/20/21 14:24 Troponin T Gen 5 ng/L 15 ng/L (0-15) 07/20/21 16:29 Total Protein 5.6 g/dL (6.6-8.7) L 05/20/22 14:24 Albumin 4.5 g/dL (3.5-5.2) 07/20/21 14:24 Globulin 1.1 g/dL (1.3-4.6) L 07/20/21 14:24 TSH 3.49 uIU/mL (0.27-4.20) 07/20/21 14:24 Discharge Plan Discharge Patient Disposition: Home Clinical Impression: Palpitations Condition: Stable Prescriptions: No Action fluticasone propionate [Flonase Allergy Relief] 50 mcg/actuation spray,suspension 2 spray INTRANASAL DAILY 0RF Rx Instructions: administer into each nostril aspirin [Adult Aspirin Regimen] 81 mg tablet,delayed release (DR/EC) 162 mg PO DAILY 0RF lisinopril 20 mg tablet 20 mg PO DAILY 90 Days Qty: 90 4RF omega-3 acid ethyl esters [Lovaza] 1 gram capsule 1 cap PO DAILY Qty: 90 3RF rosuvastatin 20 mg tablet 20 mg PO DAILY Qty: 90 3RF sildenafil (pulm.hypertension) 20 mg tablet 20 mg PO .COMPLEX Qty: 30 3RF Rx Instructions: 20 mg PO as ordered one 30 mins previous; administer doses at least 4-6 hours apart lorazepam 0.5 mg tablet 0.5 mg PO BID PRN (Reason: anxiety) Qty: 60 0RF testosterone cypionate [Depo-Testosterone] 200 mg/mL oil 200 mg IM .[id number] 30 Days Qty: 10 0RF Rx Instructions: inject one ML every 2 weeks Zyrtec 10 mg Tablet 10 mg PO DAILY PRN (Reason: Allergy Symptoms) 0RF Discharge Orders: Discharge ED (Routine); Ordered 07/20/21 Ordered By: Bryce Bowser Referrals: Balbir Lewis MD [Primary Care Provider] - Discharge Diet: Regular Discharge Activity: Increase activity as tolerated Patient Instructions: Heart Palpitations (ED) Activity Restrictions/Additional Instructions: Follow-up with your PCP or hair designer as directed in the next 3 to 5 days for reevaluation and to get set up with a Holter monitor. Continue taking all home medications as previously prescribed. Return to the ER or your medical provider if condition worsens. Please read and understand discharge instructions. Thank you for choosing [facility] for your healthcare needs today. Please realize this is an emergency room and that we are providing you with a medical screening exam and this may not be complete and all inclusive of all the testing and or work up that you may need to determine your ailment or severity of your illness. It is very important that you follow up as instructed or that you return to the Emergency Department should you have concerns or if your condition changes or worsens in any way. Sign Out Sign Out Data: Patient Sign Out occurred on 07/20/21 at 17:21. Patient's care was discussed, and care was transferred from to AUGUSTA Marquez. Coding Level of Care Code ED Director Of Sustainable Design for [employer] Fwd Exam Comprehensive
[2021-07-20 17:07] LABS: Troponin T (5th) Once 15 ng/L (0-15)
[2021-07-20 17:35] VITALS: BP 131/75; PULSE 60; RESP 14; O2SAT 97
== END 2021-07-20 17:48 | disposition home or self-care (01) ==
PROVIDERS: Registered Nurse; Emergency Provider Physician Assistant; PCP Internal Medicine
DX: R00.2 Palpitations (principal); Z79.82 Long term (current) use of aspirin; Z82.49 Family history of ischemic heart disease and other diseases of the circulatory system
CPT/HCPCS: 71045; 80053; 83735; 84443; 84484; 85025; 93005; 99283

== ENCOUNTER 2021-09-22 09:42 | Emergency (ER) | payer OTHER, SELFPAY ==
[2021-09-22] VITALS (14 sets, daily range): BP systolic 134–176; BP diastolic 36–108; PULSE 52–90; RESP 12–19; TEMP 36.6; O2SAT 95–99; BMI 35.2
--- NOTE | 2021-09-22 10:09 | XRR_ITS ---
PROCEDURE INFORMATION: Exam: XR Chest Exam date and time: 09/22/2021 11:31 AM Age: 61 years old Clinical indication: Shortness of breath; Additional info: SOB TECHNIQUE: Imaging protocol: Radiologic exam of the chest. Views: 1 view. COMPARISON: CR XR chest 1V portable [id number] 07/20/2021 2:14 PM FINDINGS: Lungs: There are hazy opacities at the lung bases, right greater than left. Pleural spaces: Unremarkable. No pleural effusion. No pneumothorax. Heart/Mediastinum: Cardiomegaly. Vasculature: There is calcified plaque in the aortic knob similar to the prior study. Bones/joints: There are posterior sternotomy changes and postoperative changes overlying the mediastinum. XR/XR chest 1V portable [id number] IMPRESSION: Hazy opacities at the lung bases are nonspecific. Differential includes pneumonia and pulmonary edema.
--- NOTE | 2021-09-22 10:09 | ECG_ITS ---
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 Measurements Intervals [place] Rate: 54 P: 26 IA: 179 QRS: 22 QRSD: 102 T: 238 QT: 444 QTc: 424 Interpretive Statements SINUS BRADYCARDIA SEPTAL MYOCARDIAL INFARCTION , OF INDETERMINATE AGE [40+ ms Q WAVE IN V1/V2] Diffuse ST-T changes Compared to ECG 07/20/2021 16:52:28 Myocardial infarct finding now present Sinus arrhythmia no longer present T-wave abnormality no longer present Electronically Signed On 09-22-2021 20:17:05 CDT by Matthew Mcclelland M.D. [email or web address]
[2021-09-22 11:34] LABS: Basophils # 0.1 10^3/uL (0.0-0.1); Basophils % 0.7 %; Eosinophils # 0.2 10^3/uL (0.0-0.8); Eosinophils % 1.7 %; Hematocrit 41.3 % (42.0-52.0); Hemoglobin 13.7 g/dL (11.7-16.6); Lymphocytes # 2.1 10^3/uL (0.8-4.8); Lymphocytes % 24.4 %; Mean Corpuscular HGB Conc 33.2 g/dL (30.0-36.0); Mean Corpuscular Hemoglobin 29.4 pg (28.0-34.0); Mean Corpuscular Volume 88.6 fl (80-94); Mean Platelet Volume 10.8 fL (7.4-10.4); Monocytes # 0.6 10^3/uL (0.2-0.9); Monocytes % 7.4 %; Neutrophils # 5.63 10^3/uL (1.8-7.7); Neutrophils % 65.3 %; Nucleated Red Blood Cells % 0 %; Platelet Count 158 10^3/cmm (130-400); Red Blood Count 4.66 10^6/uL (4.1-5.3); Red Cell Distribution Width 13.4 % (12.1-15.1); White Blood Count 8.6 10^3/uL (4.0-10.0)
--- NOTE | 2021-09-22 11:42 | ED_ITS ---
HPI - SOB/Dyspnea General: Chief Complaint: Shortness of Breath/Dyspnea Stated Complaint: SOB Time Seen by Provider: 09/22/21 09:58 History of Present Illness: HPI Narrative: 61 yo male patient presents to the ER with SOB. Pt states he was seen in last week for same complaint and they put him on steroids and antibiotics. Pt states last few days this has worsened. Pt c/o tightness when he breaths in his upper abdomen. Pt denies any fever cough but does c/o congestion. Pt states he has had a heart valve replacement as well as aortic aneurysm repair in 2012. Associated symptoms: Deny abdominal pain, chest congestion, chest pain, diaphoresis, dizziness, extremity pain, fever(s), hemoptysis, lightheadedness, nausea, orthopnea, palpitations, polydipsia, polyuria, syncope or vomiting Review of Systems Const: Denies: fever(s), chills, body aches, change in appetite, change in weight, fatigue, malaise or diaphoresis Eyes: Denies: change in vision, blurry vision, blind spots, photophobia, eye discomfort, eye discharge, eye redness, floaters or seeing flashes ENMT: Denies: throat pain, uvular edema, enlarged tonsils, odynophagia, hoarseness, mouth pain, swelling of lips/tongue, oral sores, bleeding gums, dental pain, dry mouth, ear or mastoid pain, ear discharge, change in hearing, tinnitus, disequilibrium, nasal discharge, nasal congestion, post nasal drip or sinus pain Card: Denies: chest pain, palpitations, irregular heart rhythm, edema, swelling of feet/ankles, lightheadedness, syncope, pre-syncope, dyspnea on exertion, orthopnea, leg pain with exertion or acrocyanosis Resp: Denies: productive cough, non-productive cough, wheezing, stridor, change in phlegm color, hemoptysis or chest congestion GI: Denies: abdominal pain, nausea, vomiting, hematemesis, dysphagia, diarr hea, constipation, GI cramping, change in bowel habits or rectal pain : Denies: flank pain, dysuria, urinary frequency, urinary urgency, urinary hesitancy or hematuria Musc: Denies: neck pain, back pain, extremity pain, extremity swelling, joint pain, joint swelling, joint redness, joint warmth or deformity Skin/Breast: Denies: rash, pruritus, erythema, sores, new lesions, changes in skin color or dry skin Neuro: Denies: headache(s), numbness in extremities, weakness in extremities, sensory changes, lack of coordination, difficulty walking, frequent falls, dizziness, vertigo, confusion, behavioral changes, Slurred speech present, difficulty communicating thoughts or seizure-like activity Psych: Denies: anxiety, depression, suicidal ideation or homicidal ideation Endo: Denies: polyuria, polydipsia, tired all the time, cold intolerance, excessive sweating, flushing, hot flashes or heat intolerance Dante/Lymph: Denies: easy bruising, easy bleeding, petechiae, purpura, enlarged lymph nodes or tender lymph nodes All/Imm: Denies: urticaria, throat swelling, tongue swelling, facial swelling, acute wheezing or itchy eyes PFSH ED PFSH: Medical History (Updated 09/22/21 @ 16:15 by Huma Patel) Abdominal aortic aneurysm ASHD (arteriosclerotic heart disease) BPH (benign prostatic hyperplasia) Hyperlipidemia Hypertension DIONICIO (obstructive sleep apnea) Valvular heart disease Surgical History H/O aortic valve replacement History of back surgery Family History Other CAD (coronary artery disease) CHF (congestive heart failure) Hypertension Social History Smoking and tobacco status: never smoked Alcohol intake: current Alcohol intake frequency: holidays/special occasions only Household members: spouse Physical Exam Const: COMMON NORMALS: no acute distress, patient oriented x3, healthy appearing, alert and well nourished GENERAL APPEARANCE: cooperative, comfortable, well kempt and well developed; not ill appearing ORIENTATION/CONSCIOUSNESS: Yes awake, Yes oriented to person, Yes oriented to place and Yes oriented to time HENMT: COMMON NORMALS: normocephalic, atraumatic, hearing grossly normal bilaterally, external ears normal, EAC's normal, Normal external nose present, Normal nasal mucous membranes and turbinates present and moist oral mucous membranes HEAD & SCALP: normal to inspection, normocephalic and atraumatic FACE & SINUS: normal facial exam, sinuses nontender and face symmetric NOSE: Normal external nose present, Normal nares present, Normal nasal mucous membranes and turbinates present and No nasal discharge present EXTERNAL EAR: Yes external ears normal and Yes mastoids normal EXTERNAL AUDITORY CANAL: EAC's normal MOUTH: Normal oral and palatal mucosa present, lip normal, tongue normal and Normal salivary glands and ducts present THROAT: no uvular edema Eye: COMMON NORMALS: Equal, round and reactive pupils present, EOMs intact bilaterally, conjunctivae normal and no scleral icterus GENERAL EYE: appearance normal, both eyes and all related structures EYELID: eyelids normal CONJUNCTIVA: Yes conjunctivae normal SCLERA: sclerae normal CORNEA: Yes corneas normal PUPIL: Yes Equal, round and reactive pupils present Neck/C-Spine: COMMON NORMALS: full ROM, no lymphadenopathy, supple, no meningeal signs, no JVD and Thyroid normal GENERAL: Yes normal visual inspection and Yes trachea midline THYROID: Thyroid normal CERVICAL SPINE: Yes cervical ROM normal Lymph: LYMPHATIC: no lymphadenopathy noted and no lymphedema noted Chest: COMMONS NORMALS: normal inspection of the chest and normal palpation of entire chest wall Resp: COMMON NORMALS: normal respiratory effort, No retractions, No use of accessory muscles and clear to auscultation bilaterally EFFORT & INSPECTION: Yes able to speak in complete sentences and Yes symmetric chest movement AUSCULTATION: clear to auscultation bilaterally Cardio: COMMON NORMALS: no JVD, regular rate and regular rhythm RATE: reg ular rate RHYTHM: regular rhythm GI: COMMON NORMALS: Normal to inspection, nondistended, normoactive bowel sounds present, Soft to palpation, non-tender, No hepatosplenomegaly present, no masses and no bruits INSPECTION: Yes normal to inspection AUSCULTATION: Yes normoactive bowel sounds PALPATION: Yes Soft to palpation and Yes No hepatosplenomegaly present PERCUSSION: normal to percussion RECTAL EXAM: Yes deferred : COMMON NORMALS: Yes no CVA tenderness BLADDER/KIDNEY EXAM: Yes no CVA tenderness Back/Pelvis: COMMON NORMALS: no CVA tenderness, thoracic and lumbar spine normal to inspection, no thoracic nor lumbar tenderness and thoraco-lumbar ROM normal THORACIC SPINE/UPPER BACK: Yes normal to inspection LUMBAR SPINE/LOWER BACK: Yes normal to inspection Extremity: COMMON NORMALS: normal to inspection, full ROM and capillary refill normal GENERAL: Yes normal exam except as noted Neuro: COMMON NORMALS: patient oriented x3, CN's II-XII intact bilaterally, moves all extremities, no focal motor deficits, no sensory deficits noted and gait normal SENSORIUM/ORIENTATION: Yes alert, Yes oriented to person, Yes oriented to place and Yes oriented to time MENINGEAL SIGNS: Yes no meningeal signs CRANIAL NERVES: Yes CN normal except as noted SPEECH: speech normal GAIT: Yes Normal gait present SENSORY EXAM: Yes extremities MOTOR EXAM: 5/5 motor strength present throughout Psych: COMMON NORMALS: mental status grossly normal, Normal thought process present, cooperative, normal affect, speech normal, activity/motor behavior normal, denies hallucinations, denies homicidal ideation and denies suicidal ideation APPEARANCE: Yes grossly normal and Yes well kempt ATTITUDE: Yes calm ACTIVITY/MOTOR BEHAVIOR: Yes appropriate eye contact SPEECH: Yes normal speech THOUGHT PROCESS: Normal thought process present THOUGHT CONTENT: Yes Normal thought content present ATTENTION/CONCENTRATION: Yes attention grossly intact MEMORY/COGNITION: Yes memory grossly intact INSIGHT: Good insight present (Psych) JUDGEMENT: Good judgement present (Psych) Skin: COMMON NORMALS: no rashes or lesions noted, no wounds, turgor normal, no jaundice, no petechiae and no mottling GENERAL SKIN EXAM: no rashes or lesions noted and turgor normal Course Vital Signs: Vital signs: Vital Signs Temperature 97.8 F 09/22/21 09:49 Pulse Rate 56 L 09/22/21 14:45 Respiratory Rate 14 09/22/21 14:45 Blood Pressure 134/78 09/22/21 16:40 Pulse Oximetry 97 09/22/21 14:45 MDM - SOB/Dyspnea Medical Decision Making Patient is well appearing non toxic and in no acute distress. VSS. 61 yo male patient presents to the ER with SOB. Pt states he was seen in last week for same complaint and they put him on steroids and antibiotics. Pt states last few days this has worsened. Pt c/o tightness when he breaths in his upper abdomen. Pt denies any fever cough but does c/o congestion. Pt states he has had a heart valve replacement as well as aortic aneurysm repair in 2013 Will order dimer and cardiac and resp work up at this time. Will consider CTA. I discussed CT findings with patient and he has a follow up appt with [facility] on and will discuss these results. Given Right heart strain and BNP level I will start patient on Lasix 20 mg daily and also have him take Potassium supplement. This is likely the cause of patients SOB. VSS and have remained stable throughout the duration of stay. Covid is negative and patient just completed a full course of doxy will have him follow up with PCP for repeat chest xray. Delta trop is WNL and EKG reveals no st depression or elevation this making cardiac ischemia unlikely. Patient is medically stable for discharge. Case reviewed with Dr. Kearns Differential Diagnosis Likely acute exacerbation of chronic obstructive airways disease, congestive heart failure, community acquired pneumonia, asthma with exacerbation and pulmonary embolism Lab Data : 09/22/21 11:23 09/22/21 11:23 Labs/Radiology: Radiology Impressions Chest X-Ray 09/22/21 10:09 IMPRESSION: Hazy opacities at the lung bases are nonspecific. Differential includes pneumonia and pulmonary edema. Chest/Abdomen CTA 09/22/21 13:03 IMPRESSION: 1. Cardiomegaly. There is reflux of contrast into the hepatic veins consistent with right heart strain. In combination with a small right pleural effusion, findings raise concern for congestive heart failure. 2. 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 3. Bilateral pulmonary ground-glass opacities. These are nonspecific and can be seen with pulmonary edema and/or pneumonia. 4. There is mucosal thickening of the distal esophagus and gastroesophageal junction. Differential includes esophagitis/gastritis. Follow-up to exclude neoplasm as clinically warranted. 5. There is a hooked appearance with focal narrowing of the superior aspect of the proximal celiac trunk. 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 Laboratory Results WBC 8.6 10^3/uL (4.0-10.0) 09/22/21 11: RBC 4.66 10^6/uL (4.1-5.3) 09/22/21 11:23 Hgb 13.7 g/dL (11.7-16.6) 09/22/21 11: Hct 41.3 % (42.0-52.0) L 09/22/21 11:23 MCV 88.6 fl (80-94) 09/22/21 11:23 MCH 29.4 pg (28.0-34.0) 09/22/21 11: MCHC 33.2 g/dL (30.0-36.0) 09/22/21 11:23 RDW 13.4 % (12.1-15.1) 09/22/21 11:23 Plt Count 158 10^3/cmm (130-400) 09/22/21 11:23 MPV 10.8 fL (7.4-10.4) H 09/22/21 11:23 Neut % (Auto) 65.3 % 09/22/21 11:23 Lymph % (Auto) 24.4 % 09/22/21 11:23 [place] % (Auto) 7.4 % 09/22/21 11:23 Eos % (Auto) 1.7 % 09/22/21 11:23 Baso % (Auto) 0.7 % 09/22/21 11:23 Neut # (Auto) 5.63 10^3/uL (1.8-7.7) 09/22/21 11:23 Lymph # (Auto) 2.1 10^3/uL (0.8-4.8) 09/22/21 11:23 [place] # (Auto) 0.6 10^3/uL (0.2-0.9) 09/22/21 11:23 Eos # (Auto) 0.2 10^3/uL (0.0-0.8) 09/22/21 11:23 Baso # (Auto) 0.1 10^3/uL (0.0-0.1) 09/22/21 11:23 Nucleated RBC % (auto) 0 % 09/22/21 11: Nucleated RBCs # 0.0 /100WBC 09/22/21 11:23 D-Dimer 1.19 ug/mIFEU (0-0.59) H 09/22/21 11:23 Sodium 136 mmol/L (136-145) 09/22/21 11:23 Potassium 3.4 mmol/L (3.5-5.1) L 09/22/21 11:23 Chloride 102 mmol/L (98-107) 09/22/21 11:23 Carbon Dioxide 29 mmol/L (22-29) 09/22/21 11:23 Anion Gap 8.4 (5-19) 09/22/21 11:23 BUN 24 mg/dL (8-23) H 09/22/21 11:23 Creatinine 1.1 mg/dL (0.7-1.2) 09/22/21 11:23 GFR Calculation 67.8 mL/min (90-130) L 09/22/21 11:23 Glucose 92 mg/dL (65-115) 09/22/21 11:23 Calculated Osmolality 286 mOsm/kg (285-295) 09/22/21 11:23 Calcium 8.8 mg/dL (8.5-10.5) 09/22/21 11:23 Total Bilirubin 0.7 mg/dL (0.15-1.2) 09/22/21 11:23 AST 24 U/L (0-40) 09/22/21 11:23 ALT 33 U/L (0-41) 09/22/21 11:23 Alkaline Phosphatase 40 IU/L (40-130) 09/22/21 11:23 Troponin T Baseline 38 ng/L (0-15) H 09/22/21 11:23 Troponin T 120 Minute 33.33 ng/L (0-15) H 09/22/21 14:09 Delta Troponin T -4.67 ABS# (0-10) L 09/22/21 14:09 NT-Pro-B Natriuret Pep 2936 pg/mL (0-125) H 09/22/21 11:23 Total Protein 5.9 g/dL (6.6-8.7) L 09/22/21 11:23 Albumin 4.4 g/dL (3.5-5.2) 09/22/21 11:23 Globulin 1.5 g/dL (1.3-4.6) 09/22/21 11:23 Lipase 29 U/L (13-60) 09/22/21 11:23 SARS-CoV-2 Ag (Rapid) Negative (Negative) 09/22/21 11:31 Discharge Plan Discharge Patient Disposition: Home Clinical Impression: Heart failure Condition: Stable Prescriptions: New Lasix 20 mg tablet 20 mg PO DAILY Qty: 30 0RF No Action fluticasone propionate [Flonase Allergy Relief] 50 mcg/actuation spray,suspension 2 spray INTRANASAL DAILY 0RF Rx Instructions: administer into each nostril aspirin [Adult Aspirin Regimen] 81 mg tablet,delayed release (DR/EC) 162 mg PO DAILY 0RF lisinopril 20 mg tablet 20 mg PO DAILY 90 Days Qty: 90 4RF omega-3 acid ethyl esters [Lovaza] 1 gram capsule 1 cap PO DAILY Qty: 90 3RF rosuvastatin 20 mg tablet 20 mg PO DAILY Qty: 90 3RF sildenafil (pulm.hypertension) 20 mg tablet 20 mg PO .COMPLEX Qty: 30 3RF Rx Instructions: 20 mg PO as ordered one 30 mins previous; administer doses at least 4-6 hours apart prednisone 20 mg tablet 20 mg PO BID 5 Days Qty: 10 0RF doxycycline hyclate 100 mg tablet 100 mg PO BID 5 Days Qty: 10 0RF lorazepam 0.5 mg tablet 0.5 mg PO BID PRN (Reason: anxiety) Qty: 60 0RF testosterone cypionate [Depo-Testosterone] 200 mg/mL oil 200 mg IM .[id number] 30 Days Qty: 10 0RF Rx Instructions: inject one ML every 2 weeks Zyrtec 10 mg Tablet 10 mg PO DAILY PRN (Reason: Allergy Symptoms) 0RF Discharge Orders: Discharge ED (Routine); Ordered 09/22/21 Ordered By: Huma Patel Referrals: Balbir Lewis MD [Primary Care Provider] - 1 week Discharge Diet: Cardiac Discharge Activity: Increase activity as tolerated Patient Instructions: Congestive Heart Failure, Opioid Safety Activity Restrictions/Additional Instructions: Please take medication as prescribed Please take potassium supplement Please Keep cardiology appt as scheduled for Return to ER if sudden weight gain or loss (3-5 pounds in one day) increased shortness of breath increased weakness or fatigue dizziness or faintness, especially while standing increased swelling in the ankles, legs, or abdomen a cough that won't go away chest pain Coding Level of Care Code ED Rn Night for Papito Fwwes Exam Comprehensive
[2021-09-22 11:59] LABS: SARS Covid-2 Antigen Negative (Negative)
[2021-09-22 12:02] LABS: D Dimer 1.19 ug/mIFEU (0-0.59)
[2021-09-22 12:03] LABS: Alanine Aminotransferase 33 U/L (0-41); Albumin Level 4.4 g/dL (3.5-5.2); Alkaline Phosphatase 40 IU/L (40-130); Anion Gap 8.4 (5-19); Aspartate Amino Transferase 24 U/L (0-40); Blood Urea Nitrogen 24 mg/dL (8-23); Calcium 8.8 mg/dL (8.5-10.5); Carbon Dioxide 29 mmol/L (22-29); Chloride 102 mmol/L (98-107); Globulin 1.5 g/dL (1.3-4.6); Glomerular Filtration Rate 67.8 mL/min (90-130); Glucose 92 mg/dL (65-115); Lipase 29 U/L (13-60); Osmolality Calculated 286 mOsm/kg (285-295); Potassium 3.4 mmol/L (3.5-5.1); Sodium 136 mmol/L (136-145); Total Bilirubin 0.7 mg/dL (0.15-1.2); Total Protein 5.9 g/dL (6.6-8.7)
[2021-09-22 12:23] LABS: Troponin(5th) Baseline 38 ng/L (0-15)
[2021-09-22 12:24] LABS: NT Pro B Type Natriuretic Pept 2936 pg/mL (0-125)
--- NOTE | 2021-09-22 13:03 | CTR_ITS ---
PROCEDURE INFORMATION: Exam: CTA Chest With Contrast CTA Abdomen and Pelvis With Contrast Exam date and time: 09/22/2021 2:19 PM Age: 61 years old Clinical indication: Shortness of breath; Prior surgery; Surgery type: Aortic valve, aortic root aneurysm repair; Additional info: SOB TECHNIQUE: Imaging protocol: Computed tomographic angiography of the chest with contrast. Computed tomographic angiography of the abdomen and pelvis with contrast. 3D rendering (Not supervised by radiologist): MIP and/or 3D reconstructed images were created by the technologist. Radiation optimization: All CT scans at this facility use at least one of these dose optimization techniques: automated exposure control; mA and/or kV adjustment per patient size (includes targeted exams where dose is matched to clinical indication); or iterative reconstruction. Contrast material: OMNI 350; Contrast volume: 95 ml; Contrast route: INTRAVENOUS (IV); COMPARISON: CR (CHEST, ) 09/22/2021 11:31 AM RADIATION DOSE METRICS: Total DLP (mGy-cm): 3414.84 FINDINGS: VASCULATURE: Pulmonary arteries: Normal. No pulmonary emboli. Aorta: Postoperative changes are present in the region of the aortic root. 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 Postcontrast images of the thoracic aorta were not included in this exam making thoracic aorta dissection evaluation suboptimal. There is scattered atherosclerotic plaque in the abdominal aorta without significant focal stenosis. No abdominal aortic dissection or aneurysm. Celiac trunk and mesenteric arteries: There is a hooked appearance with focal narrowing of the superior aspect of the proximal celiac trunk. 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 Renal arteries: No occlusion or significant stenosis. Right iliac arteries: No occlusion or significant stenosis. Left iliac arteries: No occlusion or significant stenosis. CHEST: Lungs: Bilateral pulmonary ground-glass opacities. Bilateral peribronchial thickening. Pleural spaces: Small right pleural effusion. Trace left pleural fluid. Heart: Multivessel atherosclerotic disease which involves the coronary arteries. Cardiomegaly. There is reflux of contrast into the hepatic veins consistent with right heart strain. Mediastinal space: There is mucosal thickening of the distal esophagus and gastroesophageal junction. ABDOMEN AND PELVIS: Liver: There are cysts with benign features in the liver the larger of which measures 3.9 cm in the left hepatic lobe. Follow-up is not necessary. Gallbladder and bile ducts: Unremarkable. No calcified stones. No ductal dilation. Pancreas: Unremarkable. No mass. No ductal dilation. Spleen: Small incidental splenule. Adrenal glands: Unremarkable. No mass. Kidneys and ureters: Unremarkable. No solid mass. No hydronephrosis. Stomach and bowel: See Mediastinal space finding. Appendix: A normal appendix is identified. Intraperitoneal space: Unremarkable. No free air. No significant fluid collection. Urinary bladder: Unremarkable. No mass. Reproductive: Unremarkable as visualized. Lymph nodes: Unremarkable. No enlarged lymph nodes. Bones/joints: There are post sternotomy changes. Soft tissues: Unremarkable. CT/CT angio chest abdomen IMPRESSION: 1. Cardiomegaly. There is reflux of contrast into the hepatic veins consistent with right heart strain. In combination with a small right pleural effusion, findings raise concern for congestive heart failure. 2. 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 3. Bilateral pulmonary ground-glass opacities. These are nonspecific and can be seen with pulmonary edema and/or pneumonia. 4. There is mucosal thickening of the distal esophagus and gastroesophageal junction. Differential includes esophagitis/gastritis. Follow-up to exclude neoplasm as clinically warranted. 5. There is a hooked appearance with focal narrowing of the superior aspect of the proximal celiac trunk. 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
[2021-09-22] MEDS: iohexol 350 mg/mL 100 mL Btl IV (14:23)
[2021-09-22 14:49] LABS: Troponin 5 2HR 33.33 ng/L (0-15)
[2021-09-22 14:55] LABS: Troponin 5 2HR Delta -4.67 ABS# (0-10)
[2021-09-22] MEDS: FUROsemide 10 mg/mL SDV 2mL 20 MG IVP (16:27)
== END 2021-09-22 16:42 | disposition home or self-care (01) ==
PROVIDERS: Emergency Provider Registered Nurse; PCP Internal Medicine
DX: I11.0 Hypertensive heart disease with heart failure (principal); I50.9 Heart failure, unspecified; E78.5 Hyperlipidemia, unspecified; Z79.82 Long term (current) use of aspirin; Z20.822 Contact with and (suspected) exposure to COVID-19
CPT/HCPCS: 71045; 71275; 74175; 80053; 83690; 83880; 84484; 85025; 85378; 87426; 93005; 96374; 99285; J1940; Q9967

== ENCOUNTER 2021-09-27 15:23 | Outpatient (CLI) | payer OTHER, SELFPAY ==
--- NOTE | 2021-09-27 15:30 | USCV_ITS ---
Montrell Garcia Age: 61 Gender: M : 1960 Exam Date: 09/27/2021 15:32 Ordering Phys: Matthew Mcclelland MD ([email or web address]) Technologist: Exam Location[place] [facility] [place] Indication: aortic pros BP: 130 / 80 HR: 66 Rhythm: Sinus Technical Quality: Adequate MEASUREMENTS (Male / Female) Normal Values 2D ECHO LV Diastolic Diameter PLAX 5.9 cm 4.2 - 5.9 / 3.9 - 5.3 cm LV Systolic Diameter PLAX 3.6 cm IVS Diastolic Thickness 1.2 cm 0.6 - 1.0 / 0.6 - 0.9 cm IVS Systolic Thickness 1.9 cm LVPW Diastolic Thickness 1.4 cm 0.6 - 1.0 / 0.6 - 0.9 cm LVPW Systolic Thickness 1.9 cm LVOT Diameter 2.1 cm LV Ejection Fraction 2D Teich 68.6 % LV Ejection Fraction MOD 2C 66.1 % LV Ejection Fraction 2C AL 64.2 % LA Diameter 4.4 cm IVC Diameter 1.4 cm M-MODE Aortic Annulus Diameter 3.8 cm LA Ao Ratio MM 1.3 MV E Point Septal Separation 1.2 cm DOPPLER AV Peak Velocity 161.0 cm/s LVOT Peak Velocity 119.0 cm/s AV Area Cont Eq vti 3.3 cm squared AV Area Cont Eq pk 2.6 cm squared TR Peak Velocity 213.0 cm/s TR Peak Gradient 18.1 mmHg Right Atrial Pressure 3.0 mmHg Pulmonary Artery Systolic Pressu 21.1 mmHg PV Peak Velocity 142.0 cm/s FINDINGS Left Ventricle Normal LV size and ejection fraction of around 55%(visual). Mildly dilated LV cavity.mild left ventricular hypertrophy. No regional wall motion abnormalities. Right Ventricle Normal right ventricular size and systolic function. Right Atrium The right atrium is normal in size. Left Atrium Upper limit of normal size. Mitral Valve Mild mitral valve regurgitation. Aortic Valve Moderately severe eccentric aortic regurgitation. The aortic leaflets could not be visualized well. Pressure half-time was found to be 281 ms Tricuspid Valve No gross abnormalities noted Pulmonic Valve Could not be visualized well Pericardium No pericardial effusion. Aorta Normal aortic annulus size. IVC Inferior vena cava not visualized. CONCLUSIONS Normal LV size and ejection fraction of around 55%(visual). Mildly dilated LV cavity.mild left ventricular hypertrophy. No regional wall motion abnormalities. Left atrium, upper limit of normal size. Moderately severe eccentric aortic regurgitation. The aortic leaflets could not be visualized well. Pressure half-time was found to be 281 ms. Mild mitral valve regurgitation. There is no pericardial effusion. Compared to the study from 01/28/2020, there is worsening of the aortic regurgitation Dr Matthew Mcclelland MD [facility] (Electronically Signed) Final Date: 27 September 2021 18:28 S
== END 2021-09-27 15:24 | disposition home or self-care (01) ==
LOC: RAD 15:25
PROVIDERS: PCP Internal Medicine; Visit Provider Internal Medicine Cardiovascular Disease
DX: R06.00 Dyspnea, unspecified (principal); I11.0 Hypertensive heart disease with heart failure; I25.10 Atherosclerotic heart disease of native coronary artery without angina pectoris; R06.02 Shortness of breath; Z79.01 Long term (current) use of anticoagulants; I08.0 Rheumatic disorders of both mitral and aortic valves
CPT/HCPCS: 80048; 83880; 85025; 93306

== ENCOUNTER 2021-10-01 11:11 | Day surgery (SDC) | payer OTHER, SELFPAY ==
--- NOTE | 2021-10-01 11:25 | P.ANESASSM_ITS ---
Pre-Anesthetic Assessment Height/Weight: Height 1.8 m Weight 104.78 kg Preop Diagnosis: screen Operation Date: 10/01/21 13:00 Proposed Procedures p RIGO(Not Applicable) - Matthew Mcclelland MD Familial anesthetic complications: none Was Beta Zuri taken within 24 hours: N/A Was Clonidine taken within 24 hours: N/A Last intake: 09/30/21 Social No alcohol and No tobacco Exam alert, oriented x 3, clear to auscultation bilaterally and regular rate & rhythm Airway Submandibular: within normal limits Cervical ROM: within normal limits Mallampati: Class III Comments: Comments: missing molars Pulmonary Sleep Apnea and Shortness of Breath (Much improved after starting furosemide ) CV/HEM Arrythmia (Has had afib in the past ), Coronary Artery Disease, Congestive Heart Failure, Hypertension and Murmur Thoracic Aorta aneurysm Hx of 3 prior valve and aneurysm surgeries TTE 09/27/21 CONCLUSIONS ?Normal LV size and ejection fraction of around 55%(visual).? ?Mildly dilated LV cavity.mild left ventricular hypertrophy. No ?regional wall motion abnormalities. ?Left atrium, upper limit of normal size. ?Moderately severe eccentric aortic regurgitation.? ?The aortic leaflets could not be visualized well.? Pressure ?half-time was found to be 281 ms. ?Mild mitral valve regurgitation. ?There is no pericardial effusion. ?Compared to the study from 01/28/2020, there is worsening of the ?aortic regurgitation Data form Doctor Mcclelland's note 09/27/21 09/22/21 Chest/Abd CTA 1. Cardiomegaly. There is reflux of contrast into the hepatic veins consistent with right heart strain. In combination with a small right pleural effusion, findings raise concern for congestive heart failure. 2. 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 3. Bilateral pulmonary ground-glass opacities. These are nonspecific and can be seen with pulmonary edema and/or pneumonia. 4. There is mucosal thickening of the distal esophagus and gastroesophageal junction. Differential includes esophagitis/gastritis. Follow-up to exclude neoplasm as clinically warranted. 5. There is a hooked appearance with focal narrowing of the superior aspect of the proximal celiac trunk. 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 01/28/20 Echo ?Normal LV size with an ejection fraction of 54%. ?Mild hypokinesia of the basal and mid septum and anteroseptal ?segments. ?Tissue valve at the aortic position appears to be well-seated.? ?Valve leaflets could not be visualized well.? ?Mild aortic regurgitation was noted. ?Peak velocity at the aortic valve was? 1.37 m/s. ?Mild biatrial enlargement. ?Trace tricuspid valve regurgitation. ?Estimated pulmonary peak systolic pressure was within normal ?limits ?There is no pericardial effusion. ?There are no intracardiac masses. ?Compared to the previous study from 12/11/2018, there may not be ?a significant change. None reported Hepatic None reported GI None reported Metabolic None reported Musc/skel None reported Neuropsych None reported Anesthetic Plan ASA status: 3 Anesthesia: Anesthesia Evaluation, General and MAC Other: I discussed with the patient risks, goals, and benefits of MAC and general anesthesia. We discussed spectrum of MAC anesthesia including conversion to general as well as possibility of recall of intraoperative stimuli including discomfort/pain. Patient agrees to proceed with MAC. Risk of > 500 ml blood loss (7ml/kg in children): No Medications/Allergies Home Medications Medication Instructions Recorded Confirmed Last Taken Type aspirin 81 mg tablet,delayed 162 mg PO DAILY 11/18/19 10/01/21 09/30/21 History release (Adult Aspirin Regimen) fluticasone propionate 50 2 spray intranasal DAILY 11/18/19 10/01/21 09/30/21 History mcg/actuation nasal spray,suspension (Flonase Allergy Relief) lorazepam 0.5 mg tablet 0.5 mg PO BID PRN anxiety #60 tabs 09/18/20 10/01/21 09/30/21 Rx lisinopril 20 mg tablet 20 mg PO DAILY 90 days #90 tabs 12/08/20 10/01/21 09/30/21 Rx omega-3 acid ethyl esters 1 gram 1 cap PO DAILY #90 caps 12/08/20 10/01/21 09/30/21 Rx capsule (Lovaza) rosuvastatin 20 mg tablet 20 mg PO DAILY #90 tabs 12/08/20 10/01/21 09/30/21 Rx sildenafil (pulm.hypertension) 20 20 mg PO .COMPLEX #30 tabs 12/08/20 10/01/21 09/30/21 Rx mg tablet testosterone cypionate 200 mg/mL 200 mg IM .[id number] 30 days #10 mL 02/15/21 10/01/2109/30/22 Rx intramuscular oil (Depo-Testosterone) cetirizine 10 mg tablet (Zyrtec) 10 mg PO DAILY PRN Allergy Symptoms 07/20/21 10/01/21 09/30/21 History furosemide 20 mg tablet (Lasix) 20 mg PO DAILY #30 tabs 09/22/21 10/01/21 09/30/21 Rx magnesium oxide 400 mg PO DAILY 09/27/21 10/01/21 09/30/21 History potassium gluconate 595 mg (99 mg) 595 mg PO DAILY 09/27/21 10/01/21 09/30/21 History tablet Allergies Allergy/AdvReac Type Severity Reaction Status Date / Time cephalexin [From Keflex] Allergy Unknown Verified 10/01/21 07:51 [facility] Anesthesia Medical History Abdominal aortic aneurysm ASHD (arteriosclerotic heart disease) BPH (benign prostatic hyperplasia) Hyperlipidemia Hypertension DIONICIO (obstructive sleep apnea) Valvular heart disease Surgical History H/O aortic valve replacement History of back surgery Family History Brother CAD (coronary artery disease), Onset Age: 30 Parkinsons disease Brother CAD (coronary artery disease), Onset Age: 40 Chronic kidney disease (CKD) Mother Dementia Sister Parkinsons disease Other CHF (congestive heart failure) Hypertension Denies family history of Diabetes Clotting disorder Suicide Anesthesia complication Bleeding disorder Lung disease Cancer Stroke Social History Smoking and tobacco status: never smoked Alcohol intake: current Alcohol intake frequency: holidays/special occasions only Household members: spouse Data Anesthesia Cardiac Studies: Echocardiogram 09/27/21 Echocardiogram Ultrasound 01/28/20
[2021-10-01 11:27] VITALS: BP 131/52; PULSE 70; RESP 18; TEMP 36.3; O2SAT 96
[2021-10-01] MEDS: sodium chloride 0.9% 1,000 ML 30 ML IV (11:45)
--- NOTE | 2021-10-01 12:16 | USCV_ITS ---
Montrell Garcia Age: 61 Gender: M : 1960 Exam Date: 10/01/2021 12:52 Ordering Phys: Matthew Mcclelland MD ([email or web address]) Technologist: Shamar Davis Exam Location: [facility] Indication: aortic insuff BP: 139 / 47 HR: Rhythm: Sinus Technical Quality: MEASUREMENTS (Male / Female) Normal Values 2D ECHO LVOT Diameter 2.0 cm Aorta at Sinotubular Diameter 3.5 cm Medications IV propofol-please refer to anesthesia report Complications None Proc. Components The patient was brought to the RIGO examination room in a fasting state after obtaining an informed consent. The RIGO probe was passed into the posterior pharynx , mid-esophagus, distal esophagus, and gastric fundus. RIGO was performed at multiple levels. The patient tolerated the procedure well and there were no complications. FINDINGS Left Ventricle Mildly dilated with normal ejection fraction-around 55% Right Ventricle Possibly of normal size and ejection fraction. Right Atrium No intracavitary masses Left Atrium No intracardiac masses LA Appendage Appears to be of normal size and contractility IA Septum Appears to be intact. Mitral Valve Mild mitral valve regurgitation. Aortic Valve The left coronary cusp appears to be prolapsing. Moderately severe aortic regurgitation . Eccentric regurgitation jet, directed anteriorly Tricuspid Valve Trace of tricuspid regurgitation Pulmonic Valve Could not be visualized well Pericardium No significant pericardial effusion Aorta Aortic root measured 3.9 cm in diameter, at the level of the sinuses CONCLUSIONS 1. Moderately severe eccentric aortic regurgitation with the regurgitant jet directed anteriorly. Possible prolapse of the left coronary cusp. 2. Mild mitral regurgitation with a trace of tricuspid regurgitation 3. Mildly dilated LV cavity with normal ejection fraction, around 55% 4. Normal RV size and ejection fraction. 5. Aortic root measured 3.9 cm at the level of the sinuses 6. No intracavitary masses. 7. No intracardiac shunts, based on the color-flow Doppler examination. No similar previous studies are available for comparison Dr Matthew Mcclelland MD [facility] (Electronically Signed) Final Date: 03 October 2021 07:29 S
--- NOTE | 2021-10-01 12:29 | W.PM.OPSUD ---
Surgery/Procedure H&P Update DATE OF PROCEDURE: October 01, 2021 DATE H&P PERFORMED: 09/27/21 H&P UPDATE INFORMATION: I have reviewed H&P completed within last 30 days, I have examined patient prior to procedure and No changes to prior documentation PREOP DIAGNOSIS: AR PLANNED PROCEDURE: Operation Date: 10/01/21 13:00 Proposed Procedures p RIGO(Not Applicable) - Matthew Mcclelland MD
[2021-10-01 13:28] VITALS: BP 107/52; PULSE 65; RESP 16; TEMP 36.3; O2SAT 98
[2021-10-01 13:40] VITALS: BP 109/49; PULSE 63; RESP 18; O2SAT 99
--- NOTE | 2021-10-01 14:04 | ANE.PACU2 ---
Inpatient post-anesthesia follow up: Airway intact: Yes Vital signs: Temperature 97.4 F Pulse Rate 63 Respiratory Rate 18 Blood Pressure 109/49 Pulse Oximetry 99 Oxygen Delivery Me thod Room Air Oxygen Flow Rate 3 Fraction of Inspir ed Oxygen Hydration adequate: Yes Nausea and vomiting: No Pain level: 1 Mental status: Baseline
== END 2021-10-01 13:52 | disposition home or self-care (01) ==
PROVIDERS: PCP Internal Medicine; Visit Provider Internal Medicine Cardiovascular Disease
PROC: (CPT 93312; principal; 2021-10-01 13:00)
DX: I35.1 Nonrheumatic aortic (valve) insufficiency (principal); I38 Endocarditis, valve unspecified; I11.0 Hypertensive heart disease with heart failure; I50.9 Heart failure, unspecified; I25.10 Atherosclerotic heart disease of native coronary artery without angina pectoris; G47.33 Obstructive sleep apnea (adult) (pediatric); N40.0 Benign prostatic hyperplasia without lower urinary tract symptoms; E78.5 Hyperlipidemia, unspecified; I10 Essential (primary) hypertension; Z79.82 Long term (current) use of aspirin
CPT/HCPCS: 93312; 93320; 93325; J2704; J7030

== ENCOUNTER 2021-10-12 09:36 | Outpatient (CLI) | payer OTHER, SELFPAY ==
[2021-10-12 11:17] LABS: Anion Gap 14.2 (5-19); Blood Urea Nitrogen 30 mg/dL (8-23); Calcium 9.4 mg/dL (8.5-10.5); Carbon Dioxide 28 mmol/L (22-29); Chloride 103 mmol/L (98-107); Glomerular Filtration Rate 75.7 mL/min (90-130); Glucose 99 mg/dL (65-115); Osmolality Calculated 298 mOsm/kg (285-295); Potassium 4.2 mmol/L (3.5-5.1); Sodium 141 mmol/L (136-145)
--- NOTE | 2021-11-02 12:05 | P.MISC_ITS ---
Miscellaneous Note Purpose of Documentation: Phone conversation Note: This patient called the office to give us an update of the current status. According to him, he is feeling okay. He has an appointment to see the cardiothoracic surgeon in [place] on the of this month As far as the patient is concerned he has no unusual symptoms. He may have some dyspnea on exertion. He also has occasional palpitations. No other specific complaints. He continues to do his regular activities. I advised him to contact our office or come back to the hospital if he has any unusual shortness of breath, dizziness or syncopal episodes. Otherwise he may keep the appointment with the cardiothoracic surgeon.
== END 2021-10-12 09:37 | disposition home or self-care (01) ==
PROVIDERS: PCP Internal Medicine; Visit Provider Internal Medicine Cardiovascular Disease
DX: I25.10 Atherosclerotic heart disease of native coronary artery without angina pectoris (principal); I38 Endocarditis, valve unspecified
CPT/HCPCS: 36415; 80048

== ENCOUNTER 2021-11-27 16:28 | Emergency (ER) | payer OTHER, SELFPAY ==
[2021-11-27] VITALS (9 sets, daily range): BP systolic 124–153; BP diastolic 38–61; PULSE 69–88; RESP 12–35; TEMP 36.6; O2SAT 94–97; BMI 34.8
--- NOTE | 2021-11-27 16:54 | ED_ITS ---
Documented by User: Leonel Laguna DO 12/03/21 07:33 HPI - Arrhythmia/Palpitations General: Chief Complaint: Arrhythmia/Palpitations Stated Complaint: Heart pt, rapid heartrate Time Seen by Provider: 11/27/21 16:37 Source: patient Mode of arrival: ambulatory Limitations: no limitations History of Present Illness: 61-year-old male with a history of congestive heart failure and cardiomyopathy. He has had multiple valvuloplasty's including revisions of his aortic valve on the couple of occasions. Comes in today with increasing shortness of breath and orthopnea. Palpitations and irregular heartbeat. Denies any chest pain. MD complaint: rapid heart beat, heart racing and palpitations Onset (ago): day(s) Duration: intermittent Severity: moderate Context: occurred during rest Arrhythmia history: atrial fibrillation Associated symptoms: Reports short of breath; Deny anxiety, cough, diaphoresis, muscle cramps, nausea, paresthesias, pre- syncope, sense of impending doom, syncope or vomiting Review of Systems Const: Denies: diaphoresis ENMT: Denies: throat pain, ear or mastoid pain, nasal discharge or nasal congestion Card: Denies: syncope or pre-syncope Resp: Denies: dyspnea, productive cough or non-productive cough GI: Denies: nausea or vomiting : Denies: flank pain, dysuria, urinary frequency or urinary urgency Musc: Denies: muscle cramps Skin/Breast: Denies: rash or pruritus Psych: Denies: anxiety PFSH ED PFSH: Medical History Abdominal aortic aneurysm ASHD (arteriosclerotic heart disease) BPH (benign prostatic hyperplasia) Hyperlipidemia Hypertension DIONICIO (obstructive sleep apnea) Valvular heart disease Surgical History H/O aortic valve replacement History of back surgery Family History Brother CAD (coronary artery disease), Onset Age: 30 Parkinsons disease Brother CAD (coronary artery disease), Onset Age: 40 Chronic kidney disease (CKD) Mother Dementia Sister Parkinsons disease Other CHF (congestive heart failure) Hypertension Denies family history of Diabetes Clotting disorder Suicide Anesthesia complication Bleeding disorder Lung disease Cancer Stroke Social History Smoking and tobacco status: never smoked Alcohol intake: current Alcohol intake frequency: holidays/special occasions only Household members: spouse Physical Exam Const: COMMON NORMALS: no acute distress GENERAL APPEARANCE: cooperative and comfortable ORIENTATION/CONSCIOUSNESS: Yes awake, Yes oriented to person, Yes oriented to place and Yes oriented to time HENMT: COMMON NORMALS: normocephalic, atraumatic and hearing grossly normal bilaterally HEAD & SCALP: normocephalic and atraumatic Resp: AUSCULTATION: crackles Laterality: bilateral (At bases) Cardio: COMMON NORMALS: regular rate and regular rhythm RATE: regular rate RHYTHM: regular rhythm GI: COMMON NORMALS: Soft to palpation and No hepatosplenomegaly present AUSCULTATION: Yes normoactive bowel sounds PALPATION: Yes Soft to palpation, No Tenderness to palpation present (GI), No Guarding due to palpation present (GI) and Yes No hepatosplenomegaly present Extremity: COMMON NORMALS: normal to inspection, capillary refill normal, no clubbing, cyanosis or edema, no calf tenderness and no pedal edema Neuro: SENSORIUM/ORIENTATION: Yes oriented to person, Yes oriented to place and Yes oriented to time Skin: COMMON NORMALS: no rashes or lesions noted GENERAL SKIN EXAM: no rashes or lesions noted Course Vital Signs: Vital signs: Vital Signs Temperature 97.8 F 11/27/21 16:33 Pulse Rate 73 11/27/21 19:30 Respiratory Rate 18 11/27/21 19:30 Blood Pressure 137/38 11/27/21 20:00 Pulse Oximetry 97 11/27/21 19:30 Oxygen Delivery Me thod 11/27/21 16:33 MDM - Arrhythmia/Palpitations Medical Decision Making Patient given IV Lasix labs and imaging pending. Care signed out to Dr. Travis at change of shift. See final notes for diagnosis and disposition. Patient presents here with some dyspnea we will give him IV Lasix he is scheduled for cath this Friday along with a TAVR repair next month I did offer him admission he states he feels improved would like to just go home and follow- up with his assistant plant control operator he is return if he has any worsening symptoms he understands agrees to plan. Lab Data : 11/27/21 17:00 11/27/21 17:00 Radiology Impressions Chest X-Ray 11/27/21 17:11 IMPRESSION: No acute findings. Laboratory Results WBC 6.0 10^3/uL (4.0-10.0) 11/27/21 17:00 RBC 4.30 10^6/uL (4.1-5.3) 11/27/21 17:00 Hgb 13.1 g/dL (11.7-16.6) 11/27/21 17:00 Hct 40.1 % (42.0-52.0) L 11/27/21 17:00 MCV 93.3 fl (80-94) 11/27/21 17:00 MCH 30.5 pg (28.0-34.0) 11/27/21 17:00 MCHC 32.7 g/dL (30.0-36.0) 11/27/21 17:00 RDW 14.6 % (12.1-15.1) 11/27/21 17:00 Plt Count 132 10^3/cmm (130-400) 11/27/21 17:00 MPV 11.2 fL (7.4-10.4) H 11/27/21 17:00 Neut % (Auto) 67.4 % 11/27/21 17:00 Lymph % (Auto) 20.6 % 11/27/21 17:00 [place] % (Auto) 8.4 % 11/27/21 17:00 Eos % (Auto) 2.7 % 11/27/21 17:00 Baso % (Auto) 0.7 % 11/27/21 17:00 Neut # (Auto) 4.03 10^3/uL (1.8-7.7) 11/27/21 17:00 Lymph # (Auto) 1.2 10^3/uL (0.8-4.8) 11/27/21 17:00 [place] # (Auto) 0.5 10^3/uL (0.2-0.9) 11/27/21 17:00 Eos # (Auto) 0.2 10^3/uL (0.0-0.8) 11/27/21 17:00 Baso # (Auto) 0.0 10^3/uL (0.0-0.1) 11/27/21 17:00 Nucleated RBC % (auto) 0 % 11/27/21 17:00 Nucleated RBCs # 0.0 /100WBC 11/27/21 17:00 Sodium 137 mmol/L (136-145) 11/27/21 17:00 Potassium 4.2 mmol/L (3.5-5.1) 11/27/21 17:00 Chloride 98 mmol/L (98-107) 11/27/21 17:00 Carbon Dioxide 29 mmol/L (22-29) 11/27/21 17:00 Anion Gap 14.2 (5-19) 11/27/21 17:00 BUN 20 mg/dL (8-23) 11/27/21 17:00 Creatinine 1.2 mg/dL (0.7-1.2) 11/27/21 17:00 GFR Calculation 61.3 mL/min (90-130) L 11/27/21 17:00 Glucose 83 mg/dL (65-115) 11/27/21 17:00 Calculated Osmolality 286 mOsm/kg (285-295) 11/27/21 17:00 Calcium 9.5 mg/dL (8.5-10.5) 11/27/21 17:00 Total Bilirubin 0.9 mg/dL (0.15-1.2) 11/27/21 17:00 AST 17 U/L (0-40) 11/27/21 17:00 ALT 13 U/L (0-41) 11/27/21 17:00 Alkaline Phosphatase 52 U/L (40-130) 11/27/21 17:00 Troponin T Baseline 23 ng/L (0-15) H 11/27/21 17:00 Troponin T 120 Minute 23.54 ng/L (0-15) H 11/27/21 18:48 Delta Troponin T 0.54 ABS# (0-10) 11/27/21 18:48 NT-Pro-B Natriuret Pep 3729 pg/mL (0-125) H 11/27/21 17:00 Total Protein 6.3 g/dL (6.6-8.7) L 11/27/21 17:00 Albumin 4.1 g/dL (3.5-5.2) 11/27/21 17:00 Globulin 2.2 g/dL (1.3-4.6) 11/27/21 17:00 Discharge Plan Discharge Patient Disposition: Home Clinical Impression: Palpitations, Valvular heart disease, Dyspnea Condition: Stable Prescriptions: No Action fluticasone propionate [Flonase Allergy Relief] 50 mcg/actuation spray,suspension 2 spray INTRANASAL DAILY Rx Instructions: administer into each nostril aspirin [Adult Aspirin Regimen] 81 mg tablet,delayed release (DR/EC) 162 mg PO DAILY lisinopril 20 mg tablet 20 mg PO DAILY 90 Days Qty: 90 4RF omega-3 acid ethyl esters [Lovaza] 1 gram capsule 1 cap PO DAILY Qty: 90 3RF rosuvastatin 20 mg tablet 20 mg PO DAILY Qty: 90 3RF sildenafil (pulm.hypertension) 20 mg tablet 20 mg PO .COMPLEX Qty: 30 3RF Rx Instructions: 20 mg PO as ordered one 30 mins previous; administer doses at least 4-6 hours apart potassium gluconate 595 mg (99 mg) tablet 595 mg PO DAILY lorazepam 0.5 mg tablet 0.5 mg PO BID PRN (Reason: anxiety) Qty: 60 3RF testosterone cypionate [Depo-Testosterone] 200 mg/mL oil 200 mg IM .[id number] 30 Days Qty: 10 0RF Rx Instructions: inject one ML every 2 weeks furosemide [Lasix] 20 mg tablet 20 mg PO DAILY Qty: 90 1RF magnesium L-lactate [Magtab] 84 mg tablet extended release 84 mg PO BID Qty: 180 3RF cetirizine [Zyrtec] 10 mg Tablet 10 mg PO DAILY PRN (Reason: Allergy Symptoms) Discharge Orders: Discharge ED (Routine); Ordered 11/27/21 Ordered By: Toy Travis Referrals: Matthew Mcclelland MD [Primary Care Provider] - Discharge Diet: Advance as tolerated Discharge Activity: Resume usual activity Patient Instructions: Heart Palpitations (ED), Dyspnea (ED) Coding Level of Care Code ED Education Site Manager for Chg Fwd Exam Detailed Documented by User: Toy Travis MD 11/27/21 20:00 HPI - Arrhythmia/Palpitations General: Chief Complaint: Arrhythmia/Palpitations Stated Complaint: Heart pt, rapid heartrate Time Seen by Provider: 11/27/21 16:37 Source: patient Mode of arrival: ambulatory Limitations: no limitations History of Present Illness: . PFS ED PFSH: Medical History Abdominal aortic aneurysm ASHD (arteriosclerotic heart disease) BPH (benign prostatic hyperplasia) Hyperlipidemia Hypertension DIONICIO (obstructive sleep apnea) Valvular heart disease Surgical History H/O aortic valve replacement History of back surgery Family History Brother CAD (coronary artery disease), Onset Age: 30 Parkinsons disease Brother CAD (coronary artery disease), Onset Age: 40 Chronic kidney disease (CKD) Mother Dementia Sister Parkinsons disease Other CHF (congestive heart failure) Hypertension Denies family history of Diabetes Clotting disorder Suicide Anesthesia complication Bleeding disorder Lung disease Cancer Stroke Social History Smoking and tobacco status: never smoked Alcohol intake: current Alcohol intake frequency: holidays/special occasions only Household members: spouse Course Vital Signs: Vital signs: Vital Signs Temperature 97.8 F 11/27/21 16:33 Pulse Rate 73 11/27/21 19:30 Respiratory Rate 18 11/27/21 19:30 Blood Pressure 137/38 11/27/21 20:00 Pulse Oximetry 97 11/27/21 19:30 Oxygen Delivery Me thod 11/27/21 16:33 MDM - Arrhythmia/Palpitations Medical Decision Making Patient presents here with some dyspnea we will give him IV Lasix he is scheduled for cath this Friday along with a TAVR repair next month I did offer him admission he states he feels improved would like to just go home and follow- up with his assistant plant control operator he is return if he has any worsening symptoms he understands agrees to plan. Lab Data : 11/27/21 17:00 11/27/21 17:00 Radiology Impressions Chest X-Ray 11/27/21 17:11 IMPRESSION: No acute findings. Laboratory Results WBC 6.0 10^3/uL (4.0-10.0) 11/27/21 17:00 RBC 4.30 10^6/uL (4.1-5.3) 11/27/21 17:00 Hgb 13.1 g/dL (11.7-16.6) 11/27/21 17:00 Hct 40.1 % (42.0-52.0) L 11/27/21 17:00 MCV 93.3 fl (80-94) 11/27/21 17:00 MCH 30.5 pg (28.0-34.0) 11/27/21 17:00 MCHC 32.7 g/dL (30.0-36.0) 11/27/21 17:00 RDW 14.6 % (12.1-15.1) 11/27/21 17:00 Plt Count 132 10^3/cmm (130-400) 11/27/21 17:00 MPV 11.2 fL (7.4-10.4) H 11/27/21 17:00 Neut % (Auto) 67.4 % 11/27/21 17:00 Lymph % (Auto) 20.6 % 11/27/21 17:00 [place] % (Auto) 8.4 % 11/27/21 17:00 Eos % (Auto) 2.7 % 11/27/21 17:00 Baso % (Auto) 0.7 % 11/27/21 17:00 Neut # (Auto) 4.03 10^3/uL (1.8-7.7) 11/27/21 17:00 Lymph # (Auto) 1.2 10^3/uL (0.8-4.8) 11/27/21 17:00 [place] # (Auto) 0.5 10^3/uL (0.2-0.9) 11/27/21 17:00 Eos # (Auto) 0.2 10^3/uL (0.0-0.8) 11/27/21 17:00 Baso # (Auto) 0.0 10^3/uL (0.0-0.1) 11/27/21 17:00 Nucleated RBC % (auto) 0 % 11/27/21 17:00 Nucleated RBCs # 0.0 /100WBC 11/27/21 17:00 Sodium 137 mmol/L (136-145) 11/27/21 17:00 Potassium 4.2 mmol/L (3.5-5.1) 11/27/21 17:00 Chloride 98 mmol/L (98-107) 11/27/21 17:00 Carbon Dioxide 29 mmol/L (22-29) 11/27/21 17:00 Anion Gap 14.2 (5-19) 11/27/21 17:00 BUN 20 mg/dL (8-23) 11/27/21 17:00 Creatinine 1.2 mg/dL (0.7-1.2) 11/27/21 17:00 GFR Calculation 61.3 mL/min (90-130) L 11/27/21 17:00 Glucose 83 mg/dL (65-115) 11/27/21 17:00 Calculated Osmolality 286 mOsm/kg (285-295) 11/27/21 17:00 Calcium 9.5 mg/dL (8.5-10.5) 11/27/21 17:00 Total Bilirubin 0.9 mg/dL (0.15-1.2) 11/27/21 17:00 AST 17 U/L (0-40) 11/27/21 17:00 ALT 13 U/L (0-41) 11/27/21 17:00 Alkaline Phosphatase 52 U/L (40-130) 11/27/21 17:00 Troponin T Baseline 23 ng/L (0-15) H 11/27/21 17:00 Troponin T 120 Minute 23.54 ng/L (0-15) H 11/27/21 18:48 Delta Troponin T 0.54 ABS# (0-10) 11/27/21 18:48 NT-Pro-B Natriuret Pep 3729 pg/mL (0-125) H 11/27/21 17:00 Total Protein 6.3 g/dL (6.6-8.7) L 11/27/21 17:00 Albumin 4.1 g/dL (3.5-5.2) 11/27/21 17:00 Globulin 2.2 g/dL (1.3-4.6) 11/27/21 17:00 Discharge Plan Discharge Patient Disposition: Home Clinical Impression: Palpitations, Valvular heart disease, Dyspnea Condition: Stable Prescriptions: No Action fluticasone propionate [Flonase Allergy Relief] 50 mcg/actuation spray,suspension 2 spray INTRANASAL DAILY Rx Instructions: administer into each nostril aspirin [Adult Aspirin Regimen] 81 mg tablet,delayed release (DR/EC) 162 mg PO DAILY lisinopril 20 mg tablet 20 mg PO DAILY 90 Days Qty: 90 4RF omega-3 acid ethyl esters [Lovaza] 1 gram capsule 1 cap PO DAILY Qty: 90 3RF rosuvastatin 20 mg tablet 20 mg PO DAILY Qty: 90 3RF sildenafil (pulm.hypertension) 20 mg tablet 20 mg PO .COMPLEX Qty: 30 3RF Rx Instructions: 20 mg PO as ordered one 30 mins previous; administer doses at least 4-6 hours apart potassium gluconate 595 mg (99 mg) tablet 595 mg PO DAILY lorazepam 0.5 mg tablet 0.5 mg PO BID PRN (Reason: anxiety) Qty: 60 3RF testosterone cypionate [Depo-Testosterone] 200 mg/mL oil 200 mg IM .[id number] 30 Days Qty: 10 0RF Rx Instructions: inject one ML every 2 weeks furosemide [Lasix] 20 mg tablet 20 mg PO DAILY Qty: 90 1RF magnesium L-lactate [Magtab] 84 mg tablet extended release 84 mg PO BID Qty: 180 3RF cetirizine [Zyrtec] 10 mg Tablet 10 mg PO DAILY PRN (Reason: Allergy Symptoms) Discharge Orders: Discharge ED (Routine); Ordered 11/27/21 Ordered By: Toy Travis Referrals: Matthew Mcclelland MD [Primary Care Provider] - Discharge Diet: Advance as tolerated Discharge Activity: Resume usual activity Patient Instructions: Heart Palpitations (ED), Dyspnea (ED) Coding Level of Care Code ED Education Site Manager for Chg Fwd Exam Detailed
--- NOTE | 2021-11-27 17:03 | ECG_ITS ---
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 Measurements Intervals [place] Rate: 76 P: 10 DC: 171 QRS: 11 QRSD: 103 T: 109 QT: 389 QTc: 438 Interpretive Statements SINUS RHYTHM WITH OCCASIONAL VENTRICULAR PREMATURE COMPLEXES ST DEVIATION AND MODERATE T-WAVE ABNORMALITY, CONSIDER LATERAL ISCHEMIA [-0.1+ mV T-WAVE IN I/aVL/V5/V6] Compared to ECG 09/22/2021 11:13:26 Ventricular premature complex(es) now present T-wave abnormality now present Possible ischemia now present Sinus bradycardia no longer present Myocardial infarct finding no longer present ST (T wave) deviation no longer present Electronically Signed On 11-28-2021 6:02:11 CDT by Bre Neri M.D. [id number]
--- NOTE | 2021-11-27 17:11 | XRR_ITS ---
PROCEDURE INFORMATION: Exam: XR Chest Exam date and time: 11/27/2021 5:17 PM Age: 61 years old Clinical indication: Pain; Chest pressure; Prior surgery; Additional info: Dyspnea/cough TECHNIQUE: Imaging protocol: Radiologic exam of the chest. Views: 1 view. COMPARISON: CR (CHEST, ) 09/22/2021 11:31 AM FINDINGS: Lungs: Unremarkable. No consolidation. Pleural spaces: Unremarkable. No pleural effusion. No pneumothorax. Heart/Mediastinum: Unremarkable. No cardiomegaly. Bones/joints: Sternotomy wires noted. Visualized osseous structures are intact. XR/XR chest 1V portable [id number] IMPRESSION: No acute findings.
[2021-11-27 17:22] LABS: Basophils % 0.7 %; Eosinophils # 0.2 10^3/uL (0.0-0.8); Eosinophils % 2.7 %; Hematocrit 40.1 % (42.0-52.0); Hemoglobin 13.1 g/dL (11.7-16.6); Lymphocytes # 1.2 10^3/uL (0.8-4.8); Lymphocytes % 20.6 %; Mean Corpuscular HGB Conc 32.7 g/dL (30.0-36.0); Mean Corpuscular Hemoglobin 30.5 pg (28.0-34.0); Mean Corpuscular Volume 93.3 fl (80-94); Mean Platelet Volume 11.2 fL (7.4-10.4); Monocytes # 0.5 10^3/uL (0.2-0.9); Monocytes % 8.4 %; Neutrophils # 4.03 10^3/uL (1.8-7.7); Neutrophils % 67.4 %; Nucleated Red Blood Cells % 0 %; Platelet Count 132 10^3/cmm (130-400); Red Cell Distribution Width 14.6 % (12.1-15.1)
[2021-11-27 18:10] LABS: Alanine Aminotransferase 13 U/L (0-41); Albumin Level 4.1 g/dL (3.5-5.2); Alkaline Phosphatase 52 U/L (40-130); Anion Gap 14.2 (5-19); Aspartate Amino Transferase 17 U/L (0-40); Blood Urea Nitrogen 20 mg/dL (8-23); Calcium 9.5 mg/dL (8.5-10.5); Carbon Dioxide 29 mmol/L (22-29); Chloride 98 mmol/L (98-107); Creatinine Clr Calc Pharmacy 81.7368; Globulin 2.2 g/dL (1.3-4.6); Glomerular Filtration Rate 61.3 mL/min (90-130); Glucose 83 mg/dL (65-115); NT Pro B Type Natriuretic Pept 3729 pg/mL (0-125); Osmolality Calculated 286 mOsm/kg (285-295); Potassium 4.2 mmol/L (3.5-5.1); Sodium 137 mmol/L (136-145); Total Bilirubin 0.9 mg/dL (0.15-1.2); Total Protein 6.3 g/dL (6.6-8.7)
[2021-11-27 18:33] LABS: Troponin(5th) Baseline 23 ng/L (0-15)
--- NOTE | 2021-11-27 18:37 | ECG_ITS ---
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 Measurements Intervals [place] Rate: 72 P: 16 MA: 180 QRS: 8 QRSD: 104 T: 91 QT: 396 QTc: 435 Interpretive Statements SINUS RHYTHM WITH OCCASIONAL VENTRICULAR PREMATURE COMPLEXES NONSPECIFIC ST & T-WAVE ABNORMALITY Compared to ECG 11/27/2021 17:03:08 Possible ischemia no longer present T-wave abnormality still present Electronically Signed On 11-28-2021 6:08:52 CDT by Bre Neri M.D. [id number]
[2021-11-27 19:29] LABS: Troponin 5 2HR 23.54 ng/L (0-15)
[2021-11-27 19:30] LABS: Troponin 5 2HR Delta 0.54 ABS# (0-10)
[2021-11-27] MEDS: FUROsemide 10 mg/mL SDV 4mL 40 MG IVP (19:48)
== END 2021-11-27 20:03 | disposition home or self-care (01) ==
PROVIDERS: Family Medicine; Emergency Provider Emergency Medicine; PCP Internal Medicine Cardiovascular Disease
DX: R00.2 Palpitations (principal); R06.00 Dyspnea, unspecified; I38 Endocarditis, valve unspecified; Z79.82 Long term (current) use of aspirin; E78.5 Hyperlipidemia, unspecified; I10 Essential (primary) hypertension
CPT/HCPCS: 36415; 71045; 80053; 83880; 84484; 85025; 93005; 96374; 99285; J1940

== ENCOUNTER 2021-11-28 06:28 | Outpatient (CLI) | payer OTHER, SELFPAY ==
[2021-11-28 07:08] LABS: Basophils # 0.1 10^3/uL (0.0-0.1); Eosinophils # 0.2 10^3/uL (0.0-0.8); Hematocrit 40.5 % (42.0-52.0); Hemoglobin 13.4 g/dL (11.7-16.6); Lymphocytes # 1.1 10^3/uL (0.8-4.8); Mean Corpuscular HGB Conc 33.1 g/dL (30.0-36.0); Mean Corpuscular Hemoglobin 30.5 pg (28.0-34.0); Mean Platelet Volume 11.1 fL (7.4-10.4); Monocytes # 0.6 10^3/uL (0.2-0.9); Monocytes % 9.5 %; Neutrophils # 4.32 10^3/uL (1.8-7.7); Neutrophils % 69.3 %; Nucleated Red Blood Cells % 0 %; Platelet Count 141 10^3/cmm (130-400); Red Cell Distribution Width 14.3 % (12.1-15.1); White Blood Count 6.2 10^3/uL (4.0-10.0)
[2021-11-28 07:19] LABS: INR 1.06 (0.83-1.21); Prothrombin Time (Patient) 14.1 Seconds (12.0-15.1)
[2021-11-28 07:31] LABS: Anion Gap 15.1 (5-19); Blood Urea Nitrogen 19 mg/dL (8-23); Calcium 9.5 mg/dL (8.5-10.5); Carbon Dioxide 30 mmol/L (22-29); Chloride 101 mmol/L (98-107); Glomerular Filtration Rate 55.9 mL/min (90-130); Glucose 98 mg/dL (65-115); Osmolality Calculated 294 mOsm/kg (285-295); Potassium 5.1 mmol/L (3.5-5.1); Sodium 141 mmol/L (136-145)
== END 2021-11-28 06:29 | disposition home or self-care (01) ==
LOC: LAB 06:30
PROVIDERS: PCP Internal Medicine Cardiovascular Disease; Visit Provider Internal Medicine Cardiovascular Disease
DX: E78.2 Mixed hyperlipidemia (principal); I25.10 Atherosclerotic heart disease of native coronary artery without angina pectoris; I38 Endocarditis, valve unspecified
CPT/HCPCS: 80048; 85025; 85610; 86850; 86900

== ENCOUNTER 2021-11-30 05:53 | Outpatient (CLI) | payer OTHER, SELFPAY ==
[2021-11-30] VITALS (25 sets, daily range): BP systolic 96–131; BP diastolic 38–67; PULSE 61–71; RESP 12–23; TEMP 36.6; O2SAT 91–98; BMI 32.9
--- NOTE | 2021-11-30 06:23 | XACV_ITS ---
Exam Room: 2 Ht: 180 cm Wt: 107 kg BSA: 2.35 m2 Gender: Male : 1960 Any Known Allergies: Other Exam Priority: Routine Procedure(s): Procedure Description: Diagnostic procedure Procedure Description: Left Heart Catheterization Procedure Description: Aortogram Procedure Description: Coronary Angiography Stas ROSSI; Diagnostic Cath Status: Elective Diagnostic Findings * The left main is a medium caliber vessel with a mild diffuse intimal irregularities. No significant obstructive lesions were noted. Diffuse calcification was noted in the proximal and mid left and descending artery and the proximal circumflex artery.. * The left anterior descending artery is a medium caliber vessel which appears to wrap around the LV apex minimally. The artery was found to have 20 to 30% diffuse irregular narrowing in the proximal and mid segment. The distal artery was found to have an area of extrinsic compression(myocardial bridge) causing around 50% stenosis. The diagonal branches are found to have diffuse disease in the proximal segment, lesions ranging from 20 to 40%.. * The left circumflex artery also is a medium caliber vessel with a mild diffuse intimal irregularities. No significant stenotic lesions were noted. The first obtuse marginal branch was found to have around 40% proximal tubular narrowing.. * The intermedius artery, appears to be high obtuse marginal branch which appears to bifurcate near the ostium and was found to have around 50% narrowing proximally, involving the ostium. The distal arteries were found to have mild diffuse intimal irregularities. * The right coronary artery is a medium caliber codominant vessel. The artery was found to have around 30% tubular narrowing proximally. The mid segment of the artery also was found to have around the 20 to 30% diffuse narrowing. Distally the artery mainly gives of the PDA branch. It was found to have minimal intimal irregularities. No other significant's lesions were noted.. Conclusions 1. 61-year-old white male with a history of aortic valve surgery and aortic root replacement, presented with recurrent episodes of heart failure. He was found to have moderately severe aortic regurgitation by transesophageal echocardiogram. He is scheduled to have TAVR. Cardiac catheterization was recommended prior to the procedure. Patient underwent left heart catheterization with left and right coronary angiogram and aortogram today the findings are as follows. 2. Mild to moderate diffuse coronary artery disease. Coronary calcification in the proximal LAD and circumflex artery. Calcification was noted in the aortic root. Features of severe aortic regurgitation. Markedly elevated LVEDP of 48 mmHg. Aortic root appeared to be of normal size. Diagnostic RX Recommendation: other cardiac therapy w/o CABG/PCI LV EDP: 48 mmHg Left Ventriculography Findings: * LV gram was not performed because of the high LVEDP. * I aortogram was performed by placing the pigtail catheter in the ascending aorta. The ascending aorta was found to be of normal dimension. Diffuse calcification was noted in the ascending aorta. Severe aortic regugitation was noted. The aortic root measured 3.4 cm at the level of the sinuses and 2.9 cm at the level of the isthumus.. Pressures Phase:Rest AO : 128 / 48 ( 74 ) @ 8:19:00 AM 132 / 48 ( 75 ) @ 8:19:00 AM LV : 141 / 10 / 48 @ 8:19:00 AM 136 / 10 / 48 @ 8:19:00 AM Valves Phase:DefaultPhase AV : 10.0 @ 7:50:59 AM AV Mean Gradient: 17.0 @ 7:50:59 AM Clinical Evaluation EBL: 5mL-10mL Procedural Details Pre-Procedure Time Out. Identified patient by full name and date of as verbalized by the patient/guarantor. Does the consent match the physician's order: Yes. Accurate & Complete Informed Consent: Yes. Inpatient/Outpatient History & Physical on Chart: Yes. If H&P is completed, is and addenduem needed: Yes; If yes, is the addendum complete: Yes. Visualize and Verify Site with Patient/Guarantor: N/A. Relevant Radiology Images available: N/A. Pre-op teaching completed and patient verbalized understanding. The risks, benefits, and alternatives of sedation and/or procedure were discussed by physician. The patient agrees to continue. Procedure started. [facility] Clinical Fraility Score: 3: Managing Well. Law Firm Partner Indications: Valvular Disease. Chest Pain Symptom Assessment: Asymptomatic. Correct patient, site and procedure confirmed by cath team. Current diagnosis: ASHD, Valvular heart disease. PERRLA. Strong, equal hand printing roller polisher bilaterally. Lungs clear x 5 lobes. IV Fluids: 0.9% NaCl at KVO. 0 mL infused prior to aquatic laborer. Pre Procedural Pulses: bilateral radial was 3+. Pre Procedural Pulses: bilateral dorsalis pedis was Doppled. Pre Procedural Pulses: bilateral posterior tibial was 3+. Oxygen started at 2liters/min via nasal canula. right groin was prepped with chloroprep then draped in the usual sterile fashion. right radial was prepped with chloroprep then draped in the usual sterile fashion. Baseline sample Acquired. HR: 74 BPM. Physician notified. Physician arrived. Physician scrubbed in. Immediate Pre-Procedure Time Out. Correct Patient: Yes; Correct Procedure: Yes; Correct Site: Yes; Correct Patient Position: Yes; Correct Supplies: Yes; Dried Flammable Prep: Yes; Blood Products Available: Yes;. Lidocaine 1% infiltrated to the right radial. Arterial access obtained. EDP Sample taken: LV 141/10,48; HR: 69 BPM; SpO2: 97%. Pullback taken: LV 136/10,48; AO 128/48(74); Mean: 17mmHg, Peak to Peak: 10mmHg, SEP: 32sec/min; HR: 73 BPM; SpO2: 97%. A 5 upper sorbian Deejay catheter in over wire. Catheter removed over the exchange wire. A 5 upper sorbian TIG catheter in over wire. Admit Source: Out Patient. Multiple views taken of left coronary artery. Catheter removed over the exchange wire. A 6 upper sorbian JR4 catheter in over wire. Multiple views taken of right coronary artery. Catheter removed over the exchange wire. A 5 upper sorbian Angled Pig catheter in over wire. Aortogram performed in JAMISON @ 20 mL/second for a total of 40 mL. Aortic Root Visualized. Catheter and wire out. Physician scrubbed out. Physician review of cine films. Post Procedure: Pulses reassessed and unchanged. PERRLA. Strong, equal hand printing roller polisher bilaterally. No VTE prophylaxis required. Medication's Wasted: Lidocaine 1% = 3 mL. Medication's Wasted: Nitro = 50 mg. Medication's Wasted: Heparin = 1000 unit. Medication's Wasted: Other = Fentanyl 25 mcg. Total IV fluids: 245 mL. A TR Band was successful obtaining hemostatsis at the Right Radial artery insertion site. Post-op diagnosis: Severe AR, Mild CAD. Complications: None. Estimated blood loss: 5mL-10mL. Responsiveness - Normal response to verbal stimuli; alert and oriented, PERRLA. Airway - Unaffected, no intervention required; spontaneous ventilation. Circulation: W/N/L, pulses unchanged. Nausea/Vomiting: N/A. Procedure completed. Patient transferred by bed to ICU. Vital chart was stopped. Access Site Site: Right Radial artery Sheath Size: 6 Fr Hemostasis Method: TR Band Hemostasis Success: Successful Procedure Medications Start: 7:17 AM Stop: 7:17 AM Medication: Versed Amount: 1 mg Route: I.V. Start: 7:17 AM Stop: 7:17 AM Medication: Fentanyl Amount: 50 mcg Route: I.V. Start: 7:17 AM Stop: 7:17 AM Medication: Verapamil Amount: 5 mg Route: I.A. Start: 7:19 AM Stop: 7:19 AM Medication: 0.9% Saline Amount: 200 ml Route: I.V. bolus Start: 7:23 AM Stop: 7:23 AM Medication: Versed Amount: 1 mg Route: I.V. Start: 7:26 AM Stop: 7:26 AM Medication: Heparin Amount: 5000 units Route: I.V. Start: 7:41 AM Stop: 7:41 AM Medication: Fentanyl Amount: 25 mcg Route: I.V. I, the attending physician, have reviewed and verified all procedure medications. Yes, all medications given per verbal order History/Risk Factors Hypertension: Yes Dyslipidemia: Yes Peripheral Arterial Disease (PAD): No Myocardial Infarction (TN): No Obesity: No Renal Disease: No Prior Interventions PCI: No CABG: No Valve Surgery: Yes Report Signatures Finalized by Dr Matthew Mcclelland MD [facility] on 11/30/2021 03:08 PM
--- NOTE | 2021-11-30 06:57 | P.HPUD_ITS ---
Surgery/Procedure H&P Update DATE OF PROCEDURE: November 30, 2021 DATE H&P PERFORMED: 09/29/21 H&P UPDATE INFORMATION: I have reviewed H&P completed within last 30 days, I have examined patient prior to procedure and No changes to prior documentation PREOP DIAGNOSIS: AR/CHF PRIMARY INDICATION FOR PROCEDURE: CHF/AR PLANNED PROCEDURE: Operation Date: 11/30/21 07:00 Proposed Procedures p [facility] 35136,I38,I25.10(Left) - Matthew Mcclelland MD PATIENT REASSESSED PRIOR TO SEDATION, WITH NO CHANGE NOTED: Yes PHYSICAL EXAM: alert, oriented x 3, clear to auscultation bilaterally and regular rate & rhythm AIRWAY EVAL/ANESTHESIA PLAN: normal airway, see other exam findings, ASA III, Monitored Anesthesia, Local Anesthesia, Risks, benefits & alternatives of sedation and/or procedure discussed and Patient agrees to continue as planned
--- NOTE | 2021-11-30 06:58 | PM.HP ---
Providers/Chief Complaint Admitting Physician: latricia Mcclelland Primary Care Provider: Latricia Mcclelland MD Chief Complaint: CHF History of Present Illness Montrell Garcia is a 61 year old male With a history of Dr. Vaca replacement to the reimplantation of the coronary arteries in 2012, now is presenting with recurrent episodes of heart failure. Also was found to have possibly severe aortic regurgitation.. Cardiac catheterization was recommended prior to surgical intervention. Patient denies any chest pain or chest tightness. He has some amount of dyspnea on exertion. No orthopnea or PND. He is known to have high blood pressure, dyslipidemia and atherosclerotic heart disease. Denies any fever, chills or cough. Review of Systems Narrative: CONSTITUTIONAL: No fever or chills. EYES: No blurring of vision or other visual disturbances lately. ENT: No hoarseness of voice, auditory disturbances or sore throat. CARDIOVASCULAR: As mentioned above. RESPIRATORY: Dyspnea on exertion as mentioned above GASTROINTESTINAL: No hematemesis or melena. GENITOURINARY: No dysuria or hematuria. INTEGUMENTARY: No skin rashes or history of skin cancer. NEURO: No transient ischemic attacks or amaurosis. PSYCHIATRIC: No history of psychosis or major depression. HEMATOLOGIC: No bleeding disorders or significant anemia. ENDOCRINE: No history of polyuria or polydipsia. MUSCULOSKELETAL: No recent joint pain or swelling. ALLERGY/IMMUNOLOGY: As mentioned above. Medications/Allergies Home Medications Medication Instructions Recorded Confirmed Last Taken Type aspirin 81 mg tablet,delayed 162 mg PO DAILY 11/18/19 11/30/21 11/29/21 06:30 History release (Adult Aspirin Regimen) fluticasone propionate 50 2 spray intranasal DAILY 11/18/19 11/30/21 11/30/21 05:30 History mcg/actuation nasal spray,suspension (Flonase Allergy Relief) lisinopril 20 mg tablet 20 mg PO DAILY 90 days #90 tabs 12/08/20 11/30/21 11/29/21 21:00 Rx omega-3 acid ethyl esters 1 gram 1 cap PO DAILY #90 caps 12/08/20 11/30/21 11/29/21 21:00 Rx capsule (Lovaza) rosuvastatin 20 mg tablet 20 mg PO DAILY #90 tabs 12/08/20 11/30/21 11/29/21 21:00 Rx sildenafil (pulm.hypertension) 20 20 mg PO .COMPLEX #30 tabs 12/08/20 11/30/21 09/30/21 Rx mg tablet testosterone cypionate 200 mg/mL 200 mg IM .[id number] 30 days #10 mL 02/15/21 11/30/21 09/30/21 Rx intramuscular oil (Depo-Testosterone) cetirizine 10 mg tablet (Zyrtec) 10 mg PO DAILY PRN Allergy Symptoms 07/20/21 11/30/21 11/29/21 21:00 History potassium gluconate 595 mg (99 mg) 595 mg PO DAILY 09/27/21 11/30/21 11/29/21 21:00 History tablet furosemide 20 mg tablet (Lasix) 20 mg PO DAILY #90 tabs 10/17/21 11/30/21 11/29/21 21:00 Rx lorazepam 0.5 mg tablet 0.5 mg PO BID PRN anxiety #60 tabs 10/18/21 11/30/21 11/29/21 21:00 Rx magnesium L-lactate 84 mg 84 mg PO BID #180 tabs 10/30/21 11/30/21 11/29/21 21:00 Rx tablet,extended release (Magtab) Allergies Allergy/AdvReac Type Severity Reaction Status Date / Time cephalexin [From Keflex] Allergy Unknown Verified 10/18/21 13:54 PFSH Acute PFSH: Medical History Abdominal aortic aneurysm ASHD (arteriosclerotic heart disease) BPH (benign prostatic hyperplasia) Hyperlipidemia Hypertension DIONICIO (obstructive sleep apnea) Valvular heart disease Surgical History H/O aortic valve replacement History of back surgery Family History Brother CAD (coronary artery disease), Onset Age: 30 Parkinsons disease Brother CAD (coronary artery disease), Onset Age: 40 Chronic kidney disease (CKD) Mother Dementia Sister Parkinsons disease Other CHF (congestive heart failure) Hypertension Denies family history of Diabetes Clotting disorder Suicide Anesthesia complication Bleeding disorder Lung disease Cancer Stroke Social History Smoking and tobacco status: never smoked Alcohol intake: current Alcohol intake frequency: holidays/special occasions only Household members: spouse Vitals/I&O/Wt Last Vital Signs Temp 97.8 F 11/30/21 06:27 Pulse 69 11/30/21 06:27 Resp 18 11/30/21 06:27 BP 128/46 11/30/21 06:27 Pulse Ox 96 11/30/21 06:27 O2 Del Method 11/30/21 06:27 Weight last 48 hrs Weight 236 lb Physical Exam Narrative: GENERAL: The patient is alert and oriented times three. Not in any acute distress. HEENT: No significant pallor, icterus or lymphadenopathy.Oral cavity: There are no mucous membrane lesions. NECK: Trachea appears to be central. No masses noted. No JVD or thyromegaly appreciated. RESPIRATORY: Chest is symmetrical. No intercostals muscle retraction or any accessory muscle activation. There is no chest wall tenderness. Breath sounds are heard bilaterally. No rales or rhonchi heard. No evidence of any consolidation. BREASTS: Deferred. HEART: The heart sounds are normal. No S3 or S4. Early diastolic murmur grade 4 or 6 in the second aortic area. No pericardial rub ABDOMEN: No vessel pulsations or distention. No tenderness. No organomegaly appreciated. Bowel sounds are normally heard. : Deferred. RECTAL: Deferred. LYMPHATIC: No lymphadenopathy noted in the neck. EXTREMITIES: No edema or cyanosis. No clubbing. MUSCULOSKELETAL: No acute joint deformities or swelling SKIN: There are no significant rashes or ecchymosis NEUROPSYCHIATRIC: The patient is alert and oriented x3. Appears to be in a good mood. No tremors or rigidity noted. Data Echo: My impression: RIGO the on 10/01/2021 1.? Moderately severe eccentric aortic regurgitation with the ?regurgitant jet directed anteriorly.? Possible prolapse of the ?left coronary cusp. ?2.? Mild mitral regurgitation with a trace of tricuspid ?regurgitation ?3.? Mildly dilated LV cavity with? normal ejection fraction, ?around 55% ?4.? Normal RV size and ejection fraction. ?5.? Aortic root measured 3.9 cm at the level of the sinuses ?6.? No intracavitary masses. ?7.? No intracardiac shunts, based on the color-flow Doppler ?examination.? 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 Was found to have moderately severe aortic eccentric aortic regurgitation by RIGO on 10/01/2021 (2) ASHD (arteriosclerotic heart disease): Patient is known to have mild to moderate diffuse coronary artery disease. He never had any PCI's. Currently seems to be stable with no chest pain. (3) DIONICIO (obstructive sleep apnea): Patient is on a CPAP. (4) Hypertension: Blood pressure has been fairly stable at home. Qualifiers: Hypertension type: essential hypertension Qualified Code(s): I10 - Essential (primary) hypertension Plan Patient is scheduled for a left heart catheterization with left and right coronary angiogram and an aortic root angiogram. The risk of bleeding, hematoma, vascular injury, myocardial infarction, CVA, renal failure and other concomitant complications were explained in detail. Patient understood this well and consented to proceed. Attestations Medical Necessity Statement*: If the patient does not require any intervention, most likely he should be able to go home today Coding Level of Care Code Acute Recreation Assistant for Chg Fwd History Expanded Problem Focused Exam Expanded Problem Focused Medical Decision Making Moderate Complexity Diagnoses Aortic prosthetic valve regurgitation T82.897A ASHD (arteriosclerotic heart disease) I25.10 DIONICIO (obstructive sleep apnea) G47.33 Hypertension I10 Hypertension type: essential hypertension
[2021-11-30] MEDS: sodium chloride 0.9% 1,000 ML 50 ML IV (09:32)
--- NOTE | 2021-11-30 10:07 | PC.CHAP ---
Pastoral Care Encounter/Spiritual Assessment Type of Contact [] Declined modern languages professor visit [] Patient/Family/Request visit [] Outpatient visit [] Follow-up visit [] Physician referral [] Code/Alert [x] Routine visit [] Staff referral [] Actively dying [x] Patient sleeping [] Family support [] [] Out of room [] Palliative care [] [] Receiving care in room [] Pre-surgical visit [] Trauma [] Long length of stay [x] ICU visit [] Other: Relational/Emotional Strength [] Patient feels connected with others/family/visitors/staff [] Distress [] Loneliness/isolation [] Abandonment Spirituality of Patient [] Person of [place] [] Attends Buddhism of their [place] [] Believes in Prayer [] Reads Bible or Episcopalian materials [] There are Spiritual issues to be addressed Curatorial Specialist Interventions [x] Prayer [] Active listening [] Non-anxious presence [] Spiritual/emotional support [] Crisis/trauma care [] Spiritual counseling [] Bereavement support [] Provided bereavement packet [] Provided Bible/devotional materials [] Provided toy/stuffed animal, coloring book to patient or family member [] Provided Communion [] Anointing/[place] [] Salvation [x] Completed spiritual assessment [] Other: Impact on Illness or Injury [] Angry [] Fearful [] Anxious [] Often cries [] Exhaustion [] Unable to work [] Unable to attend rastafarian [] Unable to walk/stand [] Unable to read [] Unable to drive [] Unable to eat/drink [] Unable to sleep [] Unable to be with family [] Patient intubated [] Other: Summary Time spent with patient
== END 2021-11-30 15:43 | disposition home or self-care (01) ==
LOC: CCL 07:01 → ICU 08:39
PROVIDERS: PCP Internal Medicine Cardiovascular Disease; Visit Provider Internal Medicine Cardiovascular Disease
DX: T82.897A Other specified complication of cardiac prosthetic devices, implants and grafts, initial encounter (principal); I25.10 Atherosclerotic heart disease of native coronary artery without angina pectoris; G47.33 Obstructive sleep apnea (adult) (pediatric); E78.5 Hyperlipidemia, unspecified; Z79.82 Long term (current) use of aspirin; N40.0 Benign prostatic hyperplasia without lower urinary tract symptoms; I11.0 Hypertensive heart disease with heart failure; I50.9 Heart failure, unspecified
CPT/HCPCS: 36415; 93458; 96360; C1769; C1887; C1894; G0378; J1644; J1940; J2250; J3010; J3490; J7030; Q0163; Q9967

== ENCOUNTER → 2021-12-20 15:03 | Outpatient (BNVA) | payer OTHER, SELFPAY | PROVIDERS: PCP Internal Medicine; Visit Provider Internal Medicine Cardiovascular Disease | DX: R06.02 Shortness of breath (principal); Z79.01 Long term (current) use of anticoagulants; Z95.2 Presence of prosthetic heart valve; I48.91 Unspecified atrial fibrillation; N18.9 Chronic kidney disease, unspecified | CPT/HCPCS: 36415; 80048; 83880; 84443; 85025; 85610 ==

== ENCOUNTER 2022-01-04 06:32 | Outpatient (CLI) | payer OTHER, SELFPAY ==
--- NOTE | 2022-01-04 07:00 | USCV_ITS ---
Montrell Garcia Age: 61 Gender: M : 1960 Exam Date: 01/04/2022 06:45 Ordering Phys: Matthew Mcclelland MD ([email or web address]) Technologist: ADELA Exam Location: [facility] Indication: TAVR/HEART MURMUR BP: 117 / 57 HR: 58 Rhythm: Sinus Technical Quality: Adequate MEASUREMENTS (Male / Female) Normal Values 2D ECHO LVOT Diameter 2.0 cm LV Ejection Fraction MOD 2C 55.5 % LV Ejection Fraction 2C AL 59.1 % LA Diameter 3.4 cm LA Width 3.5 cm LA Height 5.1 cm RA Width 3.9 cm RA Height 5.0 cm Aorta at Sinotubular Diameter 2.8 cm M-MODE MV E Point Septal Separation 2.5 cm DOPPLER AV Peak Velocity 168.0 cm/s LVOT Peak Velocity 82.0 cm/s AV Area Cont Eq vti 1.9 cm squared AV Area Cont Eq pk 1.5 cm squared MV Peak Velocity 97.0 cm/s MV Area PHT 2.1 cm squared Mitral E to A Ratio 0.8 MV E' Velocity 36.5 cm/s Mitral E to MV E' Ratio 6.2 Mitral E to LV E' Lateral Ratio 4.6 Mitral E to LV E' Septal Ratio 9.2 TV Peak E Velocity 47.0 cm/s Right Atrial Pressure 8.0 mmHg PV Peak Velocity 111.3 cm/s RV Acceleration Time 0.1 s RV Ejection Time 0.3 s RV AcT/ET 0.4 FINDINGS Left Ventricle Normal LV size with slightly diminished ejection fraction of 50 percent( visual). Mild diffuse hypokinesia of the septum and the anteroseptal segments. Somewhat dyskinetic basal inferior wall segment. Mild hypokinesia of the basal inferior segment Right Ventricle Normal right ventricular size and systolic function. Right Atrium Normal right atrial size. Left Atrium Mildly increased left atrial size. Mitral Valve Thickened mitral valve. Aortic Valve Peak velocity across the bioprosthetic valve in the aortic position is a 1.65 m/s. The bioprosthetic valve appears to be well-seated Tricuspid Valve Trace to mild tricuspid valve regurgitation. Pulmonic Valve Pulmonic valve not well visualized. Pericardium No pericardial effusion. Aorta Normal aortic annulus size. IVC Inferior vena cava not visualized. CONCLUSIONS Normal LV size with slightly diminished ejection fraction of 50%. Wall motion normalities as mentioned above. Mildly increased left atrial size. The bioprosthetic valve with aortic position appears to be well- seated. Peak velocity across aortic valve is 1.65 m/s Trace to mild tricuspid valve regurgitation. Estimated pulmonary artery peak systolic pressure , within normal limits. There is no pericardial effusion. There are no intracardiac masses. Compared to the study from 09/27/2021, the aortic valve appears to be replaced Dr Matthew Mcclelland MD [facility] (Electronically Signed) Final Date: 04 January 2022 17:31 S
== END 2022-01-04 06:33 | disposition home or self-care (01) ==
LOC: RAD 06:33
PROVIDERS: PCP Internal Medicine; Visit Provider Internal Medicine Cardiovascular Disease
DX: R06.09 Other forms of dyspnea (principal); I07.1 Rheumatic tricuspid insufficiency; Z95.2 Presence of prosthetic heart valve
CPT/HCPCS: 93306

== ENCOUNTER 2022-04-26 10:04 | Outpatient (CLI) | payer OTHER, SELFPAY ==
[2022-04-26 11:23] LABS: Alanine Aminotransferase 17 U/L (0-41); Albumin Level 4.9 g/dL (3.5-5.2); Alkaline Phosphatase 51 U/L (40-130); Aspartate Amino Transferase 27 U/L (0-40); Blood Urea Nitrogen 21 mg/dL (8-23); Calcium 9.8 mg/dL (8.5-10.5); Carbon Dioxide 31 mmol/L (22-29); Chloride 102 mmol/L (98-107); Globulin 2.1 g/dL (1.3-4.6); Glomerular Filtration Rate 67.8 mL/min (90-130); Glucose 104 mg/dL (65-115); NT Pro B Type Natriuretic Pept 185 pg/mL (0-125); Osmolality Calculated 297 mOsm/kg (285-295); Sodium 142 mmol/L (136-145); Thyroid Stimulating Hormone 4.43 uIU/mL (0.27-4.20)
[2022-04-26 11:25] LABS: Anion Gap 12.8 (5-19); Potassium 3.8 mmol/L (3.5-5.1)
== END 2022-04-26 10:05 | disposition home or self-care (01) ==
PROVIDERS: PCP Internal Medicine; Visit Provider Internal Medicine Cardiovascular Disease
DX: R06.02 Shortness of breath (principal); E78.5 Hyperlipidemia, unspecified; N18.9 Chronic kidney disease, unspecified
CPT/HCPCS: 80048; 80076; 83880; 84443

== ENCOUNTER 2022-06-07 06:28 | Outpatient (CLI) | payer OTHER, SELFPAY ==
[2022-06-07 08:08] LABS: Anion Gap 15.6 (5-19); Blood Urea Nitrogen 28 mg/dL (8-23); Calcium 9.1 mg/dL (8.5-10.5); Carbon Dioxide 27 mmol/L (22-29); Chloride 103 mmol/L (98-107); Glomerular Filtration Rate 61.3 mL/min (90-130); Glucose 101 mg/dL (65-115); Osmolality Calculated 300 mOsm/kg (285-295); Potassium 3.6 mmol/L (3.5-5.1); Sodium 142 mmol/L (136-145); Thyroid Stimulating Hormone 3.62 uIU/mL (0.27-4.20)
== END 2022-06-07 06:29 | disposition home or self-care (01) ==
LOC: LAB 06:30
PROVIDERS: PCP Internal Medicine; Visit Provider Internal Medicine Cardiovascular Disease
DX: I48.91 Unspecified atrial fibrillation (principal); E78.2 Mixed hyperlipidemia; I50.30 Unspecified diastolic (congestive) heart failure
CPT/HCPCS: 36415; 80048; 84443

== ENCOUNTER 2022-09-07 07:15 | Emergency (ER) | payer OTHER, SELFPAY ==
[2022-09-07 07:21] VITALS: BP 150/78; PULSE 52; RESP 18; TEMP 36.6; O2SAT 99; BMI 33.5
--- NOTE | 2022-09-07 07:26 | XRR_ITS ---
PROCEDURE INFORMATION: Exam: XR Right Shoulder Exam date and time: 09/07/2022 7:32 AM Age: 62 years old Clinical indication: Pain; Shoulder; Right; Additional info: Right shoulder pain TECHNIQUE: Imaging protocol: Radiologic exam of the right shoulder. Views: 2 or more views. COMPARISON: CR XR chest 1V portable [id number] 11/27/2021 5:17 PM FINDINGS: Bones/joints: No acute fracture or dislocation. Joints are maintained. Mild degenerative changes along the spine. Multiple median sternotomy wires. Heart/Mediastinum: Transaortic valve replacement. Soft tissues: Normal. XR/XR shoulder RT min 2V* [id number] IMPRESSION: No acute findings.
--- NOTE | 2022-09-07 07:37 | W.ED.EXTPRO ---
HPI - Extremity Problem General: Chief complaint: Extremity Injury, Upper Stated complaint: right shoulder pain Time Seen by Provider: 09/07/22 07:17 History of Present Illness: Patient is a 62-year-old male who comes to the ED with right shoulder pain. Symptoms started approximately a week ago after sleeping at a hotel. He woke up with some pain in his right trapezius up by his neck and it radiates down into his right shoulder. Denies any injury or trauma to cause pain. Pain has progressed over the past week. He rates his pain currently a 7 out of 10. Flexion or rotation of neck to the left causes worsening pain. He went to his chiropractor 2 days ago and he initially got some relief after manipulation, but this morning the pain worsened. Endorses some improving factors when he is at rest laying flat and not sitting up. Patient states he has had this type of shoulder pain in the past and it got better after a couple days. Denies any chest pain shortness of breath, fevers, chills, abdominal pain, vomiting, bladder or bowel symptoms. Associated symptoms: Deny chest pain, fever(s) or rash Review of Systems Const: Denies: fever(s), chills or fatigue Eyes: Denies: change in vision or eye discomfort ENMT: Denies: throat pain, odynophagia, nasal discharge or nasal congestion Card: Denies: chest pain, palpitations, edema, swelling of feet/ankles, dyspnea on exertion or orthopnea Resp: Denies: dyspnea, productive cough or non-productive cough GI: Denies: abdominal pain, nausea, vomiting, diarrhea, constipation or hematochezia : Denies: flank pain, difficulty urinating, dysuria or hematuria Musc: Reports: extremity pain (Right shoulder pain); Denies: neck pain, back pain or extremity swelling Skin/Breast: Denies: rash or new lesions Neuro: Denies: headache(s), numbness in extremities or weakness in extremities PFSH ED PFSH: Medical History Abdominal aortic aneurysm ASHD (arteriosclerotic heart disease) BPH (benign prostatic hyperplasia) Hyperlipidemia Hypertension DIONICIO (obstructive sleep apnea) Valvular heart disease Surgical History H/O aortic valve replacement History of back surgery 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 He had a 29 mm Engel RADHA 3 valve. Family History Brother CAD (coronary artery disease), Onset Age: 30 Parkinsons disease Brother CAD (coronary artery disease), Onset Age: 40 Chronic kidney disease (CKD) Mother Dementia Sister Parkinsons disease Other CHF (congestive heart failure) Hypertension Denies family history of Diabetes Clotting disorder Suicide Anesthesia complication Bleeding disorder Lung disease Cancer Stroke Social History Smoking and tobacco status: never smoked Alcohol intake: current Alcohol intake frequency: holidays/special occasions only Substance/Drug Use: never Household members: spouse Physical Exam Const: COMMON NORMALS: no acute distress, patient oriented x3, healthy appearing and alert HENMT: COMMON NORMALS: normocephalic HEAD & SCALP: normocephalic MOUTH: Normal oral and palatal mucosa present THROAT: posterior oropharynx normal and uvula midline Neck/C-Spine: COMMON NORMALS: supple GENERAL: Yes normal visual inspection Resp: COMMON NORMALS: normal respiratory effort, No retractions, No use of accessory muscles and clear to auscultation bilaterally AUSCULTATION: clear to auscultation bilaterally Cardio: COMMON NORMALS: regular rate, regular rhythm, S1 normal heart sound present, S2 normal heart sound present, No gallops present (Cardio), No clicks present (Cardio), No murmurs present (Cardio) and Peripheral pulses 2+ throughout RATE: regular rate RHYTHM: regular rhythm HEART SOUNDS: S1 normal heart sound present and S2 normal heart sound present PERIPHERAL PULSES: Peripheral pulses 2+ throughout GI: COMMON NORMALS: Normal to inspection, nondistended, normoactive bowel sounds present, Soft to palpation, non-tender and no masses PALPATION: Yes Soft to palpation : COMMON NORMALS: Yes no CVA tenderness BLADDER/KIDNEY EXAM: Yes no CVA tenderness Back/Pelvis: COMMON NORMALS: no CVA tenderness Extremity: NARRATIVE EXTREMITY EXAM: Right shoulder?no visible deformity seen. Patient has right trapezius muscle tenderness and right rhomboid muscle tenderness to palpation. Full range of motion in right shoulder and right arm. Neurovascular intact distally. GENERAL: Yes normal exam except as noted Neuro: COMMON NORMALS: patient oriented x3 SENSORIUM/ORIENTATION: Yes alert GAIT: Yes Normal gait present Skin: GENERAL SKIN EXAM: dry skin Course Vital Signs: Vital signs: Vital Signs Temperature 97.9 F 09/07/22 07:21 Pulse Rate 52 L 09/07/22 07:21 Respiratory Rate 18 09/07/22 07:21 Blood Pressure 150/78 09/07/22 07:21 Pulse Oximetry 99 09/07/22 07:21 Oxygen Delivery Me thod Room Air 09/07/22 07:21 MDM - Extremity (Nontraumatic) Medical Decision Making Patient is a 62-year-old male who comes to the ED with right shoulder pain. Symptoms started approximately a week ago after sleeping at a hotel. He woke up with some pain in his right trapezius up by his neck and it radiates down into his right shoulder. Denies any injury or trauma to cause pain. Pain has progressed over the past week. He rates his pain currently a 7 out of 10. Flexion or rotation of neck to the left causes worsening pain. He went to his chiropractor 2 days ago and he initially got some relief after manipulation, but this morning the pain worsened. Endorses some improving factors when he is at rest laying flat and not sitting up. Patient states he has had this type of shoulder pain in the past and it got better after a couple days. Denies any chest pain shortness of breath, fevers, chills, abdominal pain, vomiting, bladder or bowel symptoms. Right shoulder?no visible deformity seen. Patient has right trapezius muscle tenderness and right rhomboid muscle tenderness to palpation. Full range of motion in right shoulder and right arm. Neurovascular intact distally. X-ray of right shoulder showed no acute findings. Patient was given a dose of Decadron here in the ED and he refused any pain meds here. Given his history and exam findings patient was diagnosed with a muscle strain of right shoulder and was discharged home with a prescription for Medrol Dosepak and a muscle relaxer. Told to take [id number] Tylenol for pain. Return to ED precautions given. Follow-up with PCP within the next week for reevaluation. Patient understood and agreed with plan. Lab Data Radiology Impressions Shoulder X-Ray 09/07/22 07:26 IMPRESSION: No acute findings. Discharge Plan Discharge Patient Disposition: Home Clinical Impression: Muscle strain of right shoulder Qualifiers: Encounter type: initial encounter Qualified Code(s): S46.911A - Strain of unspecified muscle, fascia and tendon at shoulder and upper arm level, right arm, initial encounter Condition: Stable Prescriptions: New methocarbamol 750 mg tablet 750 mg PO Q8H PRN (Reason: Muscle spasms and pain) Qty: 20 0RF Medrol (Abdulaziz) 4 mg tablets,dose pack See Rx Instructions .ROUTE .COMPLEX Qty: 21 0RF Rx Instructions: orally per package directions No Action clopidogrel 75 mg tablet 75 mg PO DAILY magnesium L-lactate [Magtab] 84 mg tablet extended release 84 mg PO BID Qty: 180 3RF potassium gluconate 595 mg (99 mg) tablet 1,190 mg PO DAILY aspirin [Adult Aspirin Regimen] 81 mg tablet,delayed release (DR/EC) 81 mg PO DAILY amiodarone 200 mg tablet 200 mg PO DIRECTED Qty: 30 0RF Rx Instructions: Take amiodorone 400mg twice daily x 10 days, then 400mg daily x 1wk, then 200mg daily fluticasone propionate [Flonase Allergy Relief] 50 mcg/actuation spray,suspension 2 spray INTRANASAL DAILY Qty: 16 3RF Rx Instructions: administer into each nostril lisinopril 20 mg tablet 20 mg PO DAILY 90 Days Qty: 90 4RF omega-3 acid ethyl esters [Lovaza] 1 gram capsule 1 cap PO DAILY Qty: 90 3RF rosuvastatin 20 mg tablet 20 mg PO DAILY Qty: 90 3RF testosterone cypionate [Depo-Testosterone] 200 mg/mL oil 200 mg IM .[id number] 30 Days Qty: 10 0RF Rx Instructions: inject one ML every 2 weeks sildenafil (pulm.hypertension) 20 mg tablet 20 mg PO .COMPLEX Qty: 30 3RF Rx Instructions: 20 mg PO as ordered one 30 mins previous; administer doses at least 4-6 hours apart lorazepam 0.5 mg tablet 0.5 mg PO BID PRN (Reason: anxiety) Qty: 60 3RF Eliquis 5 mg tablet 5 mg PO BID Qty: 180 3RF levothyroxine 25 mcg capsule 25 mcg PO DAILY Qty: 90 3RF furosemide 40 mg tablet See Rx Instructions .ROUTE .COMPLEX Qty: 30 3RF Dose Instruction: TAKE 1 TABLET BY MOUTH EVERY DAY NEEDED FOR EDEMA Rx Instructions: TAKE 1 TABLET BY MOUTH EVERY DAY NEEDED FOR EDEMA cetirizine [Zyrtec] 10 mg Tablet 10 mg PO DAILY PRN (Reason: Allergy Symptoms) Discharge Orders: Discharge ED (Routine); Ordered 09/07/22 Ordered By: Bryce Bowser Referrals: Balbir Lewis MD [Primary Care Provider] - Discharge Diet: Regular Discharge Activity: Increase activity as tolerated Patient Instructions: Muscle Strain (ED) Activity Restrictions/Additional Instructions: Follow-up with medical provider as directed in the next 3 to 5 days for reevaluation. Take medications as prescribed. Stretch and massage sore muscles daily. Return to the ER or your medical provider if condition worsens. Please read and understand discharge instructions. Thank you for choosing [facility] for your healthcare needs today. Please realize this is an emergency room and that we are providing you with a medical screening exam and this may not be complete and all inclusive of all the testing and or work up that you may need to determine your ailment or severity of your illness. It is very important that you follow up as instructed or that you return to the Emergency Department should you have concerns or if your condition changes or worsens in any way. Coding Level of Care Code ED Safety Associate for [facility]
[2022-09-07] MEDS: dexamethasone 10 mg/mL INJ IM (08:14)
== END 2022-09-07 08:32 | disposition home or self-care (01) ==
PROVIDERS: Emergency Provider Physician Assistant; PCP Internal Medicine
DX: S46.911A Strain of unspecified muscle, fascia and tendon at shoulder and upper arm level, right arm, initial encounter (principal); Z79.82 Long term (current) use of aspirin; Z79.02 Long term (current) use of antithrombotics/antiplatelets; Z79.01 Long term (current) use of anticoagulants; E78.5 Hyperlipidemia, unspecified; I10 Essential (primary) hypertension; X58.XXXA Exposure to other specified factors, initial encounter
CPT/HCPCS: 73030; 96372; 99284; J1100

== ENCOUNTER → 2022-10-31 14:14 | Outpatient (BNVA) | payer OTHER, SELFPAY | PROVIDERS: PCP Internal Medicine; Visit Provider Nurse Practitioner Family | DX: I48.91 Unspecified atrial fibrillation (principal) | CPT/HCPCS: 93005 ==